=== PATIENT | female | born 1995 | race Caucasian/White ===

== ENCOUNTER 2024-01-16 16:59 | Emergency (ER) | payer OTHER, SELFPAY ==
[2024-01-16 17:07] VITALS: BP 136/95; PULSE 99; RESP 16; TEMP 37.2; O2SAT 96; BMI 26.6
--- NOTE | 2024-01-16 17:25 | ED.GENADULT ---
HPI - General Adult General Chief complaint: Vaginal Bleeding Stated complaint: Possible ectopic Time Seen by Provider: 01/16/24 17:00 Source: patient Mode of arrival: ambulatory Limitations: no limitations History of Present Illness HPI narrative: 28-year-old female presenting today with right lower quadrant cramping, positive test. Patient had a positive test approximately 2 weeks ago and 3 days after her positive test, she started having vaginal bleeding the lasted 2 weeks. She then developed right lower quadrant abdominal and pelvic pain. She was following in the clinic with , hCG levels were going down, however then on the hCG levels went up. Patient had an ultrasound done earlier today which showed no intrauterine gestational sac. And her hCG levels again went up 46. Because of this she was sent here for further evaluation by OBGYN. Patient denies any upper abdominal pain, bleeding stopped about 3 days ago. She denies vomiting but does feel very nauseated with decreased appetite. States that she has had 1 episode of diarrhea today. She denies any urinary symptoms such as increased frequency, urgency or dysuria. No fevers or chills. Related Data Home Medications ?Medication ?Instructions ?Recorded ?Confirmed alprazolam 0.5 mg tablet mg PO 12/11/22 12/11/22 hydroxychloroquine 200 mg tablet 200 mg PO BID 12/11/22 12/11/22 infliximab-abda 100 mg intravenous IV 12/11/22 12/11/22 solution (Renflexis) metformin 500 mg tablet,extended 2,000 mg PO DAILY 12/11/22 01/16/24 release 24 hr sertraline 100 mg tablet 100 mg PO DAILY 12/11/22 01/16/24 Previous Rx's ?Medication ?Instructions ?Recorded doxycycline hyclate 100 mg tablet 100 mg PO BID #14 tabs 12/11/22 prednisone 20 mg tablet 40 mg (2 x 20 mg) PO QDAY #10 tabs 12/11/22 Allergies Allergy/AdvReac Type Severity Reaction Status Date / Time amoxicillin Allergy Mild Verified 12/11/22 13:11 Penicillins Allergy Mild Rash Verified 12/11/22 13:11 Review of Systems Status of ROS: Reports: 10 or more systems reviewed and unremarkable except as noted in History and below [facility] Medical History Viral illness ?B34.9 - Viral infection, unspecified (ICD-10) Sore throat ?J02.9 - Acute pharyngitis, unspecified (ICD-10) Social History Smoking Status: Never smoker Exam Narrative: Exam Narrative: Well-nourished well-developed patient in no acute distress. Alert and oriented. Answers questions appropriately. Mood and affect are appropriate. Thoughts are goal oriented and rational. No tangential or magical thinking noted. Patient speaks in full sentences without needing to catch her breath. HEENT: Normocephalic atraumatic. Pupils are equally round reactive to light. Extraocular muscles are intact. Conjunctivae are moist without any icterus noted. Moist mucous membranes. Cardiovascular: Heart is regular rate and rhythm S1 and S2 are present without any murmurs. Lungs: Clear to auscultation bilaterally no wheezes rhonchi or rales are appreciated. Abdomen: Soft and nondistended with normal bowel sounds. Mild right lower quadrant/pelvic tenderness. No pain at McBurney's point. No periumbilical tenderness. No guarding, no rebound tenderness. Extremities: Bilateral lower extremities are without edema. Normal DP and PT pulses. Skin: Well perfused without any obvious rashes. Const: Vital Signs, click to edit/add: Vital Signs - 24 hr 01/16/24 17:07 Temperature 99.0 F Pulse Rate [Pulse Oximeter] 99 Respiratory Rate 16 Blood Pressure [Ri ght Upper Arm] 136/95 H Pulse Oximetry 96 Oxygen Delivery Me thod Room Air Course Course ED Course: Dr. Nielsen came down to evaluate the patient, she recommended blood work in order for the patient to be treated with methotrexate. CBC, chemistries, LFTs obtain: All unremarkable. Quantitative hCG was 41. Patient given a dose of IM methotrexate per the recommendation of . Patient will be discharged home, follow-up scheduled per OBGYN. Vital Signs Vital signs: Initial Vital Signs Temperature 99.0 F 01/16/24 17:07 Temperature Source Temporal Artery Scan 01/16/24 17:07 Pulse Rate 99 01/16/24 17:07 Respiratory Rate 16 01/16/24 17:07 Blood Pressure 136/95 H 01/16/24 17:07 Blood Pressure Mean 108 H 01/16/24 17:07 Pulse Oximetry 96 01/16/24 17:07 Oxygen Delivery Method Room Air 01/16/24 17:07 Vital Signs Temperature 99.0 F 01/16/24 17:07 Pulse Rate 99 01/16/24 17:07 Respiratory Rate 16 01/16/24 17:07 Blood Pressure 136/95 H 01/16/24 17:07 Pulse Oximetry 96 01/16/24 17:07 Oxygen Delivery Method Room Air 01/16/24 17:07 Temperature 99.0 F 01/16/24 17:07 Pulse Rate 99 01/16/24 17:07 Respiratory Rate 16 01/16/24 17:07 Blood Pressure 136/95 H 01/16/24 17:07 Pulse Oximetry 96 01/16/24 17:07 Oxygen Delivery Method Room Air 01/16/24 17:07 Medical Decision Making MDM Narrative Medical decision making narrative: 28-year-old female with recent , vaginal bleeding and right lower quadrant pain, hCG levels not appropriate for a normal . Concern for abnormal versus ectopic . Treatment per above. Medical Records Medical records reviewed: Yes I reviewed the patient's medical records Medical records narrative: HCG levels and ultrasound done at the [facility] earlier today were reviewed. Lab Data Lab results reviewed: Yes I reviewed the patient's lab results Labs: Lab Results 01/16/24 01/16/24 Range/Units 17:30 17:37 WBC 7.03 (4.50-11.00) K/uL RBC 4.45 (4.00-5.20) m/uL Hgb 13.9 (12.0-16.0) gm/dL Hct 40.8 (33.0-51.0) % MCV 92 (80-100) fL MCH 31 (26-34) pg MCHC 34 (32-36) gm/dL RDW Coeff of Mimi 11.8 (11.5-15.5) % Plt Count 197 (140-440) K/uL Neut % (Auto) 50.7 (42.0-72.0) % Lymph % (Auto) 38.3 (20-44) % [place] % (Auto) 8.0 (0.0-11.0) % Eos % (Auto) 2.6 (0.0-7.0) % Baso % (Auto) 0.4 (0.0-3.0) % Neut # (Auto) 3.57 (1.7-7.0) K/uL Lymph # (Auto) 2.69 (0.90-2.90) K/uL [place] # (Auto) 0.60 (0.00-0.90) K/UL Eos # (Auto) 0.18 (0.00-0.50) K/uL Baso # (Auto) 0.03 (0.00-0.30) K/uL Abs Immat Gran (auto) 0.00 (0.00-0.30) K/uL Imm/Tot Granulo (auto) 0.0 % Sodium 137 (135-149) mmol/L Potassium 4.4 (3.6-5.1) mmol/L Chloride 103 (96-114) mmol/L Carbon Dioxide 26 (20-32) mmol/L Anion Gap 8 (7-15) mEq/L BUN 9 (5-24) mg/dL Creatinine 0.6 (0.5-1.5) mg/dL Estimated Creat Clear 119.47 Estimated GFR 125 ml/min Glucose 90 (60-115) mg/dL Calcium 9.9 (8.4-10.6) mg/dL Total Bilirubin 0.6 (0.1-1.5) mg/dL Direct Bilirubin 0.3 (0.0-0.5) mg/dL AST 23 (12-35) U/L ALT 22 (4-35) U/L Alkaline Phosphatase 38 L (40-150) U/L Total Protein 7.7 (6.0-8.3) g/dL Albumin 5.0 (3.3-5.0) g/dL HCG, Quant 41.05 mIU/mL Urine Color Yellow (Yellow) Urine Appearance Clear (Clear) Urine pH 6.0 (5.0-8.5) Ur Specific [place] 1.010 (1.000-1.030) Urine Protein Negative (Negative) Urine Glucose (UA) Negative (Negative) Urine Ketones Negative (Negative) Urine Blood Negative (Negative) Urine Nitrite Negative (Negative) Urine Bilirubin Negative (Negative) Urine Urobilinogen 0.2 (0.2-1.0) Ur Leukocyte Esterase Negative (Negative) Urine RBC 0-2 (0-2) Urine WBC 0-2 (0-5) Ur Squamous Epith Cells None (None-Few) Urine Bacteria None (None) Discharge Plan Discharge Clinical Impression: Vaginal bleeding, Ectopic without intrauterine Patient Disposition: Home, Self-Care Condition: Stable Additional Instructions: Follow-up per optical effects layout person recommendations. Prescriptions: No Action sertraline 100 mg tablet 100 mg PO DAILY Renflexis 100 mg recon soln IV hydroxychloroquine 200 mg tablet 200 mg PO BID metformin 500 mg tablet extended release 24 hr 2,000 mg PO DAILY alprazolam 0.5 mg tablet PO doxycycline hyclate 100 mg tablet 100 mg PO BID Qty: 14 0RF prednisone 20 mg tablet 40 mg PO QDAY Qty: 10 0RF Follow Up/Referrals: Madhavi Alejandra PAMarlen [Primary Care Provider] - Stand Alone Forms: [email or web address] Info Instructions
[2024-01-16 17:44] LABS: Basophils Absolute Auto 0.03 K/uL (0.00-0.30); Basophils Percent Auto 0.4 % (0.0-3.0); Eosinophils Absolute Auto 0.18 K/uL (0.00-0.50); Eosinophils Percent Auto 2.6 % (0.0-7.0); Hematocrit 40.8 % (33.0-51.0); Hemoglobin* 13.9 gm/dL (12.0-16.0); Lymphocytes Absolute Auto 2.69 K/uL (0.90-2.90); Lymphocytes Percent Auto 38.3 % (20-44); Mean Corpuscular HGB Conc 34 gm/dL (32-36); Mean Corpuscular Hemoglobin 31 pg (26-34); Mean Corpuscular Volume 92 fL (80-100); Neutrophils Absolute Auto 3.57 K/uL (1.7-7.0); Neutrophils Percent Auto 50.7 % (42.0-72.0); Platelet Count* 197 K/uL (140-440); RDW Coefficient of Variation % 11.8 % (11.5-15.5); Red Blood Count 4.45 m/uL (4.00-5.20); White Blood Count* 7.03 K/uL (4.50-11.00)
[2024-01-16 17:45] LABS: Slide Review Reflex No
[2024-01-16 17:58] LABS: Appearance Urine Clear (Clear); Bilirubin Urine Negative (Negative); Blood Urine Negative (Negative); Color Urine Yellow (Yellow); Glucose Urine Negative (Negative); Ketones Urine Negative (Negative); Leukocyte Esterase Urine Negative (Negative); Nitrite Urine Negative (Negative); Protein Urine Negative (Negative); Urobilinogen Urine 0.2 (0.2-1.0)
[2024-01-16 18:02] LABS: Chloride* 103 mmol/L (96-114); Potassium* 4.4 mmol/L (3.6-5.1); Sodium* 137 mmol/L (135-149)
[2024-01-16 18:04] LABS: Anion Gap 8 mEq/L (7-15); Carbon Dioxide* 26 mmol/L (20-32); Creatinine* 0.6 mg/dL (0.5-1.5); Est. Creatinine Clearance* 119.47; Estimated Glomerular Filt Rate 125 ml/min
[2024-01-16 18:05] LABS: Alanine Aminotransferase* 22 U/L (4-35); Alkaline Phosphatase* 38 U/L (40-150); Aspartate Amino Transferase* 23 U/L (12-35); Bilirubin Direct* 0.3 mg/dL (0.0-0.5); Bilirubin Total* 0.6 mg/dL (0.1-1.5); Blood Urea Nitrogen* 9 mg/dL (5-24); Calcium* 9.9 mg/dL (8.4-10.6); Glucose* 90 mg/dL (60-115); Total Protein* 7.7 g/dL (6.0-8.3)
[2024-01-16 18:11] LABS: RBC Urine 0-2 (0-2); WBC Urine 0-2 (0-5)
[2024-01-16 18:33] LABS: HCG Quantitative* 41.05 mIU/mL
--- NOTE | 2024-01-16 18:36 | P.GYNCN_ITS ---
SHORT PIECE HANDLER - CN: HPI Data of Consult Date Seen: 01/16/24 Patient: Charlie Patient Consult date: 01/16/24 Requesting Physician: Dr. Fernandez. Primary Care Provider: Dr. Angelica Coffman. Consult Narrative Reason for consult: ectopic Narrative: Amparo Correa is a 28 year old female, 2 para 1, who presents to the emergency department for evaluation of cramping abdominal pain and positive test, with laboratory evaluations and ultrasounds concerning for either ectopic or failed intrauterine . The patient had a positive test approximately two weeks ago. About three days later, she started bleeding vaginally. The vaginal bleeding lasted two weeks. She then developed some right lower quadrant abdominal and pelvic pain. She was evaluated at the [facility] by Dr. Coffman. Her evaluation included the following quantitative beta HCG levels: * 22 (12/29/2023) * 7 (12/31/2023) * 40 01/13/2024) * 46 (01/15/2024) She had a pelvic ultrasound on 12/29/2023 that showed no evidence intrauterine nor findings consistent with ectopic gestation. She had another pelvic ultrasound today, which demonstrated again, no evidence of intrauterine . Endometrial lining was 8 mm. Ovaries were normal in appearance. There was small-moderate fluid in the posterior cul-de-sac. Currently, the patient complains of right upper quadrant cramping discomfort with some radiation into her right shoulder. She had some menstrual-like cramping when that the vaginal probe was used for the ultrasound earlier today. She has not had any bleeding for three days. She describes feeling anxious, and has some nausea and decreased appetite. She denies urinary symptoms. She has had no fevers or chills, shortness of breath, or constipation. Loose stool earlier today. cc:: CC: [facility] Medical History (Updated 01/16/24 @ 18:56 by Fallon Nielsen MD) Anxiety and depression ?F41.9 - Anxiety disorder, unspecified (ICD-10) ?F32.A - Depression, unspecified (ICD-10) Viral illness ?B34.9 - Viral infection, unspecified (ICD-10) Sore throat ?J02.9 - Acute pharyngitis, unspecified (ICD-10) Surgical History (Updated 01/16/24 @ 18:56 by Fallon Nielsen MD) History of exploratory laparotomy ?Z98.890 - Other specified postprocedural states (ICD-10) History of section (08/17/20) ?Z98.891 - History of uterine scar from previous surgery (ICD-10) Social History (Updated 01/16/24 @ 18:56 by Fallon Nielsen MD) Smoking Status: Never smoker Are you now , , , , never or living with a partner: Social isolation score (0-1 are the most socially isolated patients): 1 Meds Home Medications and Allergies Home Medications ?Medication ?Instructions ?Recorded ?Confirmed ?Type alprazolam 0.5 mg tablet mg PO 12/11/22 12/11/22 History hydroxychloroquine 200 mg tablet 200 mg PO BID 12/11/22 12/11/22 History infliximab-abda 100 mg intravenous IV 12/11/22 12/11/22 History solution (Renflexis) metformin 500 mg tablet,extended 2,000 mg PO DAILY 12/11/22 01/16/24 History release 24 hr sertraline 100 mg tablet 100 mg PO DAILY 12/11/22 01/16/24 History Allergies Allergy/AdvReac Type Severity Reaction Status Date / Time amoxicillin Allergy Mild Verified 12/11/22 13:11 Penicillins Allergy Mild Rash Verified 12/11/22 13:11 SHORT PIECE HANDLER - Exam Physical Exam: Vital signs: Temp Pulse Resp BP Pulse Ox O2 Del Method 99.0 F 99 16 136/95 H 96 Room Air 01/16/24 17:07 01/16/24 17:07 01/16/24 17:07 01/16/24 17:07 01/16/24 17:07 01/16/24 17:07 Constitutional: Constitutional: no acute distress and cooperative Routine HEENT Exam: Head: Present normal inspection Eye: Present normal appearance Routine Respiratory Exam: Respiratory: Absent respiratory distress Routine Abdominal Exam: Abdominal: Present soft and tenderness (Right upper quadrant) Routine Exam: External: Present normal external exam Detailed Pelvic Exam: Cervix: Absent tenderness Uterus: Present tenderness (Very mildly tender uterus and right adnexa, no adnexal masses palpable) SHORT PIECE HANDLER - Results Labs Labs: Short CBC 01/16/24 Range/Units 17:37 WBC 7.03 (4.50-11.00) K/uL Hgb 13.9 (12.0-16.0) gm/dL Hct 40.8 (33.0-51.0) % Plt Count 197 (140-440) K/uL BMP 01/16/24 17:37 Sodium 137 Potassium 4.4 Chloride 103 Carbon Dioxide 26 BUN 9 Creatinine 0.6 Glucose 90 Calcium 9.9 Liver Function 01/16/24 Range/Units 17:37 Total Bilirubin 0.6 (0.1-1.5) mg/dL Direct Bilirubin 0.3 (0.0-0.5) mg/dL AST 23 (12-35) U/L ALT 22 (4-35) U/L Alkaline Phosphatase 38 L (40-150) U/L Albumin 5.0 (3.3-5.0) g/dL Urine 01/16/24 Range/Units 17:30 Urine Color Yellow (Yellow) Urine Appearance Clear (Clear) Urine pH 6.0 (5.0-8.5) Ur Specific [place] 1.010 (1.000-1.030) Urine Protein Negative (Negative) Urine Glucose (UA) Negative (Negative) Assessment and Plan Assessment and plan (1) Ectopic : Status: Acute Plan The patient and I discussed the situation. She either has a failed intrauterine or an ectopic . It is very difficult to know with certainty the location of the because it is so early in the course of the and her HCG levels are very low, beneath the discriminatory zone for imaging. Because the HCG levels are not rising appropriately, it is certain that this is not a normal that would result in a live . Certainly, because of the possibility that the is ectopic, treatment is advised. The most conservative fertility-conserving treatment would be medical treatment with methotrexate. We reviewed the relative risks and benefits of the medication which can be used for failed intrauterine or ectopic pregnancies. She is familiar with the medication, as she has used in the past for her rheumatoid arthritis at a higher dosage. Labs were are ready checked today, including CBC, BUN, creatinine, ALT, and AST as well as another beta HCG. Methotrexate will be administered at 50 milligrams/meter squared, which calculates to be 90 mg IM. The patient should have been HCG level [facility], and then should have additional labs drawn on January 22, which would include CBC, BUN, creatinine, ALT, AST, and HCG. She should see a women's [facility] stone splitter on January 22 for follow-up, to make certain that she does not need a second dose. Because the is so early, I think the necessity of a second dose would be extremely unlikely. She was cautioned that some women experience exacerbation of the pain symptoms and/or vaginal bleeding for a couple of days after methotrexate admin istration. Certainly, if she should develop severe pain or heavy vaginal bleeding, she should seek medical attention. The plan had previously been discussed with Dr. Coffman. Total Time Spent Total Time Spent: 45 minutes.
[2024-01-16 19:07] VITALS: BP 107/77; PULSE 63; RESP 20; O2SAT 96
[2024-01-16 20:16] VITALS: BP 119/84; PULSE 76; RESP 18; O2SAT 97
--- NOTE | 2024-01-16 20:22 | ED.NURSE ---
Pt received methotrexate patient education binder. and pt had no further questions. Understand lab follow up.
[2024-01-16] MEDS: METHOTREXATE 25 MG/ML inj 90 MG IM (20:25)
[2024-01-16 20:47] VITALS: BP 112/85; PULSE 76; RESP 20; O2SAT 96
== END 2024-01-16 20:48 | disposition home or self-care (01) ==
PROVIDERS: Emergency Provider Family Medicine; PCP Physician Assistant Medical
DX: O00.90 Unspecified ectopic pregnancy without intrauterine pregnancy (principal)
CPT/HCPCS: 36415; 80048; 80076; 81001; 84702; 85025; 86900; 86901; 87086; 96372; 99284; J9260

== ENCOUNTER 2024-01-20 09:25 | Outpatient (CLI) | payer OTHER, SELFPAY | END 2024-01-20 09:26 | disposition home or self-care (01) | LOC: NFLDREF 01-22 11:43 | PROVIDERS: PCP Physician Assistant Medical; Referring Provider Physician Assistant Medical; Visit Provider Obstetrics & Gynecology | DX: O00.90 Unspecified ectopic pregnancy without intrauterine pregnancy (principal) | CPT/HCPCS: 84702 ==

== ENCOUNTER 2024-01-23 08:37 | Outpatient (CLI) | payer OTHER, SELFPAY | END 2024-01-23 08:38 | disposition home or self-care (01) | LOC: NFLDREF 01-25 07:47 | PROVIDERS: PCP Physician Assistant Medical; Referring Provider Physician Assistant Medical; Visit Provider Obstetrics & Gynecology | DX: O00.90 Unspecified ectopic pregnancy without intrauterine pregnancy (principal) | CPT/HCPCS: 82565; 84450; 84460; 84520; 84702 ==

== ENCOUNTER 2024-01-30 13:00 | Outpatient (CLI) | payer OTHER, SELFPAY | END 2024-01-30 13:01 | disposition home or self-care (01) | LOC: NFLDREF 01-31 06:04 | PROVIDERS: PCP Physician Assistant Medical; Referring Provider Physician Assistant Medical; Visit Provider Obstetrics & Gynecology | DX: O00.90 Unspecified ectopic pregnancy without intrauterine pregnancy (principal) | CPT/HCPCS: 84450; 84702 ==

== ENCOUNTER 2024-02-05 16:29 | Emergency (ER) | payer OTHER, SELFPAY ==
[2024-02-05 16:32] VITALS: BP 121/78; PULSE 68; RESP 18; TEMP 36.8; O2SAT 98; BMI 26.6
--- NOTE | 2024-02-05 16:38 | US_ITS ---
Patient: BRIDGER PORTILLO Facility:?[facility] RIS Patient ID:?[id number] Site Patient ID:?[id number]. Site :?[id number] Study:?US-Pelvis PELVIS TV-02/05/2024 5:21:46 PM Ordering Physician:Lynn Gonzalez Final Report: Indication: Left lower quadrant pain Ectopic status post methotrexate. Technique: Real-time sonographic images of the pelvis were obtained transvaginally utilizing grayscale, color, and Doppler imaging. Comparison: None. Findings: Uterus: Appearance: Small amount of fluid is seen in the prior location of the section scar. Position: Anteverted. Size: 7.8 x 2.9 x 4.2 cm. Endometrial stripe: 7 mm. Right ovary: Size: 2.8 x 2.6 x 2.7 cm. Appearance: Normal morphology. No masses. Preserved blood flow. Left ovary: Size: 2.4 x 1.6 x 1.9 cm. Appearance: Normal morphology. No masses. Preserved blood flow. Free fluid: None. Impression: 1. Small amount of cystic fluid is seen in the prior location of the section scar. 2. Normal appearance of the bilateral ovaries. Dictated by Nehemias Lockett MD @ 02/05/2024 6:08:40 PM Signed by:?Nehemias Lockett MD @02/05/2024 6:08:40 PM (Electronic Signature)
--- NOTE | 2024-02-05 16:51 | ED.GENADULT ---
HPI - General Adult General Date Seen: 02/05/24 Chief complaint: Abdominal Pain Stated complaint: Abdominal pain-poss ectopic preg Time Seen by Provider: 02/05/24 16:37 History of Present Illness HPI narrative: This is a pleasant 28-year-old female with a history of rheumatoid arthritis, previous , and recent (presumed ectopic, but unknown location). LMP was November 26. After missing her menstrual cycle in December, She was diagnosed with a (based on home test) during the 2nd week of December and a couple of days after her positive test she started having vaginal bleeding. She was followed the [facility] clinic. Initial HCG was about 40 or 50 and then was falling down for a week or two and then her hCG level began to rise again. She was referred to the ER for evaluation and OB consult on January 15. In the ER on January 15 her hCG was 41. Hemoglobin was 13.9. She was seen by safety deposit clerk and treated with methotrexate. She had outpatient follow-up HCGs on 01/19 when it was 24 and 01/22 when it was 14. She had a follow-up in clinic on the and other than having GI symptoms from the methotrexate, exam was reassuring. Follow-up ECG on 01/29 was less than 2. She reports that she had about a week of GI symptoms from it the methotrexate, in particular diarrhea but also nausea and vomiting. She had 3 days of very heavy vaginal bleeding from roughly December 25 to . Since then she has not had any bleeding, discharge. She just has not been feeling very well. She has been generally weak and a little bit short of breath for the past couple of weeks. No other symptoms. No fever. No cough. No sore throat. No urinary symptoms. No ongoing diarrhea. Since Friday, 2 days ago , she has been having a lot of pressure and cramping in her lower pelvis and back. Her pain is reminiscent of when her water broke with her 1st delivery. She is having some light pink vaginal discharge (nothing malodorous or purulent) but no vaginal bleeding. No fever. She called her OB doctor and was told to come here to the ER. Related Data Home Medications ?Medication ?Instructions ?Recorded ?Confirmed alprazolam 0.5 mg tablet mg PO 12/11/22 01/23/24 hydroxychloroquine 200 mg tablet 200 mg PO BID 12/11/22 01/23/24 infliximab-abda 100 mg intravenous IV 12/11/22 01/23/24 solution (Renflexis) metformin 500 mg tablet,extended 2,000 mg PO DAILY 12/11/22 01/23/24 release 24 hr sertraline 100 mg tablet 100 mg PO DAILY 12/11/22 01/23/24 acetaminophen 500 mg tablet 500 mg PO Q6H PRN 01/23/24 01/23/24 (Tylenol Extra Strength) Allergies Allergy/AdvReac Type Severity Reaction Status Date / Time amoxicillin Allergy Mild Verified 02/05/24 20:54 Penicillins Allergy Mild Rash Verified 02/05/24 20:54 [facility] Medical History (Updated 02/05/24 @ 23:24 by Carlos Page MD) Anxiety and depression ?F41.9 - Anxiety disorder, unspecified (ICD-10) ?F32.A - Depression, unspecified (ICD-10) Viral illness ?B34.9 - Viral infection, unspecified (ICD-10) Sore throat ?J02.9 - Acute pharyngitis, unspecified (ICD-10) Surgical History (Updated 01/16/24 @ 18:56 by Fallon Nielsen MD) History of exploratory laparotomy ?Z98.890 - Other specified postprocedural states (ICD-10) History of section (08/17/20) ?Z98.891 - History of uterine scar from previous surgery (ICD-10) Social History (Updated 01/16/24 @ 18:56 by Fallon Nielsen MD) Smoking Status: Never smoker Are you now , , , , never or living with a partner: Social isolation score (0-1 are the most socially isolated patients): 1 Exam Narrative: Exam Narrative: Constitutional: Appears well-developed and well-nourished. Alert. Conversant. Non toxic. HENT: Head: Atraumatic. Nose: Nose normal. Mouth/Throat: Oral mucosa is clear and moist. no trismus. Pharynx normal Eyes: Conjunctivae normal. EOM normal. Pupils equal, round, and reactive to light. No scleral icterus. Neck: Normal range of motion. Neck supple. No tracheal deviation present. Cardiovascular: Normal rate, regular rhythm. No gallop. No friction rub. No murmur heard. Symmetric radial artery pulses Pulmonary/Chest: Effort normal. No stridor. No respiratory distress. No wheezes. No rales. No rhonchi . No tenderness. Abdominal: Soft. Bowel sounds normal. No distension. No mass. Diffusely tenderness. Maximum tenderness in lower abdomen would also quite tender in the upper abdomen. No CVA tenderness. No rebound. No guarding. Musculoskeletal: RUE: Normal range of motion. No tenderness. No deformity LUE: Normal range of motion. No tenderness. No deformity RLE: Normal range of motion. No edema. No tenderness. No deformity LLE: Normal range of motion. No edema. No tenderness. No deformity Neurological: Alert and oriented to person, place, and time. Normal strength. CN II-VII intact. No sensory deficit. GCS eye subscore is 4. GCS verbal subscore is 5. GCS motor subscore is 6. Normal coordination Skin: Skin looks pale from the doorway, but she actually has pink, well perfused palms and tongue. Brisk cap refill. I think she just has very fair skin. Skin is warm and dry. No rash noted. No pallor. Normal capillary refill. Psychiatric: Normal mood. Normal affect. Const: Vital Signs, click to edit/add: Vital Signs - 24 hr 02/05/24 16:32 02/05/24 21:07 Temperature 98.3 F Pulse Rate [Right Pulse Oximeter] 68 61 Respiratory Rate 18 16 Blood Pressure [Ri ght Upper Arm] 121/78 108/59 L Pulse Oximetry 98 98 Oxygen Delivery Me thod Room Air Room Air Course Course ED Course: Recheck-ultrasound reassuring. Patient still has fairly diffuse tenderness. Will proceed with workup for non gynecologic causes of abdominal pain including labs and CT. Reevaluation(s) Reevaluation #1: Recheck-CT shows possible right adnexal lesion. Discussed with safety deposit clerk on-call. Since the patient is not and there was normal blood flow, no immediate concern. Follow-up outpatient. Vital Signs Vital signs: Initial Vital Signs Temperature 98.3 F 02/05/24 16:32 Temperature Source Temporal Artery Scan 02/05/24 16:32 Pulse Rate 68 02/05/24 16:32 Pulse Rhythm Regular 02/05/24 16:32 Pulse Strength 3+ Normal 02/05/24 16:32 Respiratory Rate 18 02/05/24 16:32 Blood Pressure 121/78 02/05/24 16:32 Blood Pressure Mean 92 02/05/24 16:32 Blood Pressure Position Sitting 02/05/24 16:32 Pulse Oximetry 98 02/05/24 16:32 Oxygen Delivery Method Room Air 02/05/24 16:32 Vital Signs Temperature 98.3 F 02/05/24 16:32 Pulse Rate 68 02/05/24 16:32 Respiratory Rate 18 02/05/24 16:32 Blood Pressure 121/78 02/05/24 16:32 Pulse Oximetry 98 02/05/24 16:32 Oxygen Delivery Method Room Air 02/05/24 16:32 Temperature 98.3 F 02/05/24 16:32 Pulse Rate 61 02/05/24 21:07 Respiratory Rate 16 02/05/24 21:07 Blood Pressure 108/59 L 02/05/24 21:07 Pulse Oximetry 98 02/05/24 21:07 Oxygen Delivery Method Room Air 02/05/24 21:07 Medical Decision Making MDM Narrative Medical decision making narrative: Presented to the Emergency Department with abdominal pain worse in her bilateral lower quadrants but also affecting her upper abdomen that is been ongoing for the past couple of days. She did have a recent that was presumed to be ectopic and treated with methotrexate (about 3 weeks ago). Follow-up HCG levels have gone to an undetectable level so it has been presumed that her ectopic had resolved. However with recurrent pain concern would be for possible ongoing ectopic or other complication. Repeat ECG remains undetectable. Pelvic ultrasound shows structurally normal ovaries and adnexa and no free fluid. The differential diagnosis of abdominal pain also includes none gynecologic causes such as: Appendicitis, Bowel Obstruction, Cholecystitis, Diverticulitis, Pancreatitis, UTI, kidney stone, Enteritis/Colitis, amongst many other etiologies. Laboratory testing does not reveal a cause for the patient's pain. Ultrasound and CT Imaging is noted to be normal, save for a adnexal lesion next to her right ovary. Discussed this with OB and they feel it would not be related to the recent ectopic or require surgical exploration tonight.. The exact etiology of the abdominal pain is not clear at this time. No life threatening cause or need for emergent surgery or hospital admission is detected today. The patient was advised that if symptoms do not completely resolve within another 24 hours re-evaluation with primary care or return to the ED is indicated. The patient also understands that if they worsen, they should return to the ER right away. I discussed the uncertainty about the diagnosis and answered the patient's questions. Abdominal pain return precautions discussed. Instymeds prescriptions for [place] -10 tablets-along with opiate precautions provided. Lab Data Labs: Lab Results 02/05/24 02/05/24 02/05/24 Range/Units 17:19 19:00 20:10 WBC 5.40 (4.50-11.00) K/uL RBC 4.05 (4.00-5.20) m/uL Hgb 12.5 (12.0-16.0) gm/dL Hct 38.1 (33.0-51.0) % MCV 94 (80-100) fL MCH 31 (26-34) pg MCHC 33 (32-36) gm/dL RDW Coeff of Mimi 12.2 (11.5-15.5) % Plt Count 187 (140-440) K/uL Neut % (Auto) Not Reportable Lymph % (Auto) Not Reportable [place] % (Auto) Not Reportable Eos % (Auto) Not Reportable Baso % (Auto) Not Reportable Neut # (Auto) Not Reportable Lymph # (Auto) Not Reportable [place] # (Auto) Not Reportable Eos # (Auto) Not Reportable Baso # (Auto) Not Reportable Sodium 139 (135-149) mmol/L Potassium 4.0 (3.6-5.1) mmol/L Chloride 108 (96-114) mmol/L Carbon Dioxide 24 (20-32) mmol/L Anion Gap 7 (7-15) mEq/L BUN 7 (5-24) mg/dL Creatinine 0.5 (0.5-1.5) mg/dL Estimated Creat Clear 143.36 Estimated GFR 130 ml/min Glucose 89 (60-115) mg/dL Calcium 8.8 (8.4-10.6) mg/dL Total Bilirubin 0.3 (0.1-1.5) mg/dL AST 26 (12-35) U/L ALT 23 (4-35) U/L Alkaline Phosphatase 37 L (40-150) U/L Total Protein 7.0 (6.0-8.3) g/dL Albumin 4.6 (3.3-5.0) g/dL Lipase 50 (23-300) U/L HCG, Quant < 2.39 mIU/mL Urine Color Light yellow (Yellow) Urine Appearance Clear (Clear) Urine pH 7.0 (5.0-8.5) Ur Specific [place] 1.010 (1.000-1.030) Urine Protein Negative (Negative) Urine Glucose (UA) Negative (Negative) Urine Ketones Negative (Negative) Urine Blood Negative (Negative) Urine Nitrite Negative (Negative) Urine Bilirubin Negative (Negative) Urine Urobilinogen 0.2 (0.2-1.0) Ur Leukocyte Esterase Negative (Negative) Urine RBC 0-2 (0-2) Urine WBC 0-2 (0-5) Ur Squamous Epith Cells None (None-Few) Urine Bacteria Few A (None) Blood Type A Negative Antibody Screen POSITIVE 02/05/24 Range/Units 20:10 WBC (4.50-11.00) K/uL RBC (4.00-5.20) m/uL Hgb (12.0-16.0) gm/dL Hct (33.0-51.0) % MCV (80-100) fL MCH (26-34) pg MCHC (32-36) gm/dL RDW Coeff of Mimi (11.5-15.5) % Plt Count (140-440) K/uL Neut % (Auto) Lymph % (Auto) [place] % (Auto) Eos % (Auto) Baso % (Auto) Neut # (Auto) Lymph # (Auto) [place] # (Auto) Eos # (Auto) Baso # (Auto) Sodium (135-149) mmol/L Potassium (3.6-5.1) mmol/L Chloride (96-114) mmol/L Carbon Dioxide (20-32) mmol/L Anion Gap (7-15) mEq/L BUN (5-24) mg/dL Creatinine (0.5-1.5) mg/dL Estimated Creat Clear Estimated GFR ml/min Glucose (60-115) mg/dL Calcium (8.4-10.6) mg/dL Total Bilirubin (0.1-1.5) mg/dL AST (12-35) U/L ALT (4-35) U/L Alkaline Phosphatase (40-150) U/L Total Protein (6.0-8.3) g/dL Albumin (3.3-5.0) g/dL Lipase Cancelled (23-300) U/L HCG, Quant mIU/mL Urine Color (Yellow) Urine Appearance (Clear) Urine pH (5.0-8.5) Ur Specific [place] (1.000-1.030) Urine Protein (Negative) Urine Glucose (UA) (Negative) Urine Ketones (Negative) Urine Blood (Negative) Urine Nitrite (Negative) Urine Bilirubin (Negative) Urine Urobilinogen (0.2-1.0) Ur Leukocyte Esterase (Negative) Urine RBC (0-2) Urine WBC (0-5) Ur Squamous Epith Cells (None-Few) Urine Bacteria (None) Blood Type Antibody Screen Imaging Data US pelvic TV: Attestation: I have reviewed the pertinent imaging results. Radiologist's impression: Impression: 1. Small amount of cystic fluid is seen in the prior location of the section scar. 2. Normal appearance of the bilateral ovaries. Discharge Plan Discharge Clinical Impression: Abdominal pain, Ovarian cyst Patient Disposition: Home, Self-Care Condition: Stable Instructions: Ovarian Cyst (ED), Abdominal Pain (ED) Additional Instructions: As we discussed, please come back to the ER right away if you have any worsening symptoms such as worsening pain, fever, worsening vaginal bleeding or any vaginal discharge, or if you have any problems. Use caution with [place] because it can cause drowsiness, dizziness, and can be addictive. If your pain is not resolved within the next 24-36 hours, please recheck with your doctor or come back to the ER. You do have a small bubble of fluid next your right ovary which is probably an ovarian cyst. Please arrange a follow-up ultrasound with her doctor in about 1 month. Prescriptions: No Action acetaminophen [Tylenol Extra Strength] 500 mg tablet 500 mg PO Q6H PRN sertraline 100 mg tablet 100 mg PO DAILY Renflexis 100 mg recon soln IV hydroxychloroquine 200 mg tablet 200 mg PO BID metformin 500 mg tablet extended release 24 hr 2,000 mg PO DAILY alprazolam 0.5 mg tablet PO Follow Up/Referrals: Madhavi Alejandra PA-C [Primary Care Provider] - Stand Alone Forms: [employer] Info Instructions
[2024-02-05 17:27] LABS: Hematocrit 38.1 % (33.0-51.0); Hemoglobin* 12.5 gm/dL (12.0-16.0); Mean Corpuscular HGB Conc 33 gm/dL (32-36); Mean Corpuscular Hemoglobin 31 pg (26-34); Mean Corpuscular Volume 94 fL (80-100); Platelet Count* 187 K/uL (140-440); RDW Coefficient of Variation % 12.2 % (11.5-15.5); Red Blood Count 4.05 m/uL (4.00-5.20)
[2024-02-05 17:28] LABS: Slide Review Reflex No
--- NOTE | 2024-02-05 19:55 | CT_ITS ---
Patient: BRIDGER PORTILLO Facility:?[facility] Patient ID:?[id number] Site Patient ID:?[id number]. Site :?[id number] Study:?CT-Abdomen/Pelvis 76CC ISOVUE 370-02/05/2024 8:53:22 PM Ordering Physician:?DR. ALONSO Final Report: Indication: Abdominal pain, possible ectopic Technique: CT through the abdomen and pelvis following 76 mL Isovue 370 IV contrast Comparison: None Findings: Lower chest: No acute abnormality appreciated. Hepatobiliary: No significant parenchymal abnormality is appreciated. Spleen: Unremarkable. Pancreas: No acute abnormality appreciated. Adrenal glands: No acute abnormality appreciated. Kidneys: No significant parenchymal abnormality appreciated. No visualized calculi. No hydronephrosis. Bowel: No obstruction. No focal perienteric or pericolonic stranding is appreciated. The appendix is visualized and appears unremarkable. Vascular: No acute abnormality appreciated. Lymph nodes: No gross lymphadenopathy. Peritoneum: No free air. No free fluid. : Complex right adnexal/ovarian lesion measures 2.9 x 2.6 centimeters. This is not well evaluated by CT. Soft tissues: No acute abnormality appreciated. Bones: No acute fracture. No lytic or blastic lesion. Impression: Complex right adnexal/ovarian lesion. CT is not sensitive or specific for evaluation of ectopic . Ultrasound and steel pourer evaluation would be recommended if there is concern for ectopic . Please note that all CT scans at this facility use dose modulation, iterative reconstruction, and/or weight-based dosing when appropriate to reduce radiation dose to as low as reasonably achievable. Dictated by Graham Morris MD @ 02/05/2024 9:56:54 PM Signed by:?Graham Morris MD @02/05/2024 9:56:54 PM (Electronic Signature)
[2024-02-05 20:05] LABS: Appearance Urine Clear (Clear); Bilirubin Urine Negative (Negative); Blood Urine Negative (Negative); Color Urine Light yellow (Yellow); Glucose Urine Negative (Negative); Ketones Urine Negative (Negative); Leukocyte Esterase Urine Negative (Negative); Nitrite Urine Negative (Negative); Protein Urine Negative (Negative); Urobilinogen Urine 0.2 (0.2-1.0)
[2024-02-05 20:12] LABS: Bacteria Urine Few; RBC Urine 0-2 (0-2); WBC Urine 0-2 (0-5)
[2024-02-05 20:39] LABS: Albumin* 4.6 g/dL (3.3-5.0); Chloride* 108 mmol/L (96-114); Sodium* 139 mmol/L (135-149)
[2024-02-05 20:41] LABS: Bilirubin Total* 0.3 mg/dL (0.1-1.5); Creatinine* 0.5 mg/dL (0.5-1.5); Est. Creatinine Clearance* 143.36; Estimated Glomerular Filt Rate 130 ml/min
[2024-02-05 20:42] LABS: Alanine Aminotransferase* 23 U/L (4-35); Alkaline Phosphatase* 37 U/L (40-150); Anion Gap 7 mEq/L (7-15); Aspartate Amino Transferase* 26 U/L (12-35); Blood Urea Nitrogen* 7 mg/dL (5-24); Carbon Dioxide* 24 mmol/L (20-32); Glucose* 89 mg/dL (60-115); Lipase* 50 U/L (23-300)
[2024-02-05 20:43] LABS: Calcium* 8.8 mg/dL (8.4-10.6)
[2024-02-05 21:04] LABS: HCG Quantitative* < 2.39 mIU/mL
[2024-02-05 21:07] VITALS: BP 108/59; PULSE 61; RESP 16; O2SAT 98
== END 2024-02-05 23:32 | disposition home or self-care (01) ==
PROVIDERS: Emergency Provider Emergency Medicine; PCP Physician Assistant Medical
DX: R10.9 Unspecified abdominal pain (principal); N83.201 Unspecified ovarian cyst, right side
CPT/HCPCS: 36415; 74177; 76830; 80053; 81001; 83690; 84702; 85025; 86850; 86870; 86900; 86901; 86905; 86906; 87086; 93976; 99284; 99285; Q9967

== ENCOUNTER 2024-02-18 09:14 | Outpatient (CLI) | payer OTHER, SELFPAY | END 2024-02-18 09:15 | disposition home or self-care (01) | PROVIDERS: PCP Physician Assistant Medical; Visit Provider Obstetrics & Gynecology | DX: R10.9 Unspecified abdominal pain (principal) | CPT/HCPCS: 87086 ==

== ENCOUNTER 2024-02-20 14:21 | Inpatient (IN) | payer OTHER, SELFPAY ==
[2024-02-20 14:26] VITALS: BP 114/84; PULSE 94; RESP 16; TEMP 36.9; O2SAT 94; BMI 26.6
--- NOTE | 2024-02-20 14:44 | CRLHL7_ITS ---
For Patients: As a result of the Century Cures Act, medical imaging exams and procedure reports are released immediately into your electronic medical record. You may view this report before your referring provider. If you have questions, please contact your health care provider. Indication: WORSENING PELVIC PAIN WITH RECENT ECTOPIC, ENDOMETRITIS? Technique: Noncontrast CT of the abdomen and pelvis was obtained. Please note that all CT scans at this facility use dose modulation, iterative reconstruction, and/or weight-based dosing when appropriate to reduce radiation dose to as low as reasonably achievable. Comparison: 01/15/2018 Findings: Lower thorax: Normal. Liver and biliary tree: Normal noncontrast appearance. Gallbladder: Normal. Spleen: Normal noncontrast appearance. Pancreas: Normal noncontrast appearance. Adrenal glands: Normal noncontrast appearance. Kidneys and ureters: No hydronephrosis or obstructing renal calculi. Possible 2 millimeter nonobstructing left renal calculus (2/41). Gastrointestinal tract: Moderate stool burden. Normal appendix. No evidence of bowel obstruction. Peritoneal cavity: Normal. Bladder: Decompressed. Pelvic organs: Normal. Vasculature: Normal noncontrast appearance. Lymph nodes: Normal. Abdominal wall: Trace fat containing periumbilical hernia. Musculoskeletal: Normal. Impression: No acute intra-abdominal abnormality. Ultrasound may be of utility if there is concern for endometritis. Please note that all CT scans at this facility use dose modulation, iterative reconstruction, and/or weight-based dosing when appropriate to reduce radiation dose to as low as reasonably achievable. Dictated by Nehemias Lockett MD @ 02/20/2024 5:21:07 PM (Electronically Signed)
--- NOTE | 2024-02-20 14:44 | ED_ITS ---
HPI - Abdominal Pain General Time Seen by Provider: 14:44 <Carmen Vaughn MD - Last Filed: 02/20/24 16:17> Date Seen: 02/20/24 <Carmen Vaughn MD - Last Filed: 02/20/24 16:17> Chief Complaint: Abdominal Pain <Carmen Vaughn MD - Last Filed: 02/20/24 16:17> Stated Complaint: MD rec new CT for pelvic pain <Carmen Vaughn MD - Last Filed: 02/20/24 16:17> Time Seen by Provider: 02/20/24 14:25 <Carmen Vaughn MD - Last Filed: 02/20/24 16:17> Source: patient, RN notes reviewed and old records reviewed <Carmen Mesa MD - Last Filed: 02/20/24 16:17> Mode of arrival: ambulatory <Carmen Vaughn MD - Last Filed: 02/20/24 16:17> Limitations: no limitations <Carmen Vaughn MD - Last Filed: 02/20/24 16:17> History of Present Illness HPI narrative: This 28-year-old female is coming in with increasing pelvic pain and concern for underlying endometritis. Patient has been having pelvic pain since February 02. She was diagnosed with an ectopic on January 15 and was treated with methotrexate. Her hCG levels were followed until they were undetectable by January 29. Since February 02, she is been having increasing pelvic pressure and low back pain. She just has been feeling ?awful?. She has noted no fevers or chills. She does feel some pelvic pressure, pressure with urination but no irritative urinary symptoms such as dysuria, frequency or urgency. She did see Dr. Nielsen in [facility] on February 17. She did do a pelvic exam and patient notes since that time her pelvic pain increased. She was concerned about endometritis in did place her on levofloxacin and metronidazole for 7 days. She was hoping it to have improvement in patient's symptoms within 24 to [address] Coffman her primary in clinic today with worsening symptoms, they spoke with Dr. Suppes day, she recommended ED visit for CT imaging. Patient took ibuprofen this morning, did take a half [place] around lunch time. Movement and sitting really increase her symptoms. She is status post in 2020, had a remote laparoscopic surgery in 2013 for pelvic pain, no endometriosis was found. Patient is not experiencing any vaginal discharge. <Carmen Vaughn MD - Last Filed: 02/20/24 16:17> Related Data Home Medications: Home Medications ?Medication ?Instructions ?Recorded ?Confirmed alprazolam 0.5 mg tablet mg PO 12/11/22 02/18/24 hydroxychloroquine 200 mg tablet 200 mg PO BID 12/11/22 02/20/24 infliximab-abda 100 mg intravenous IV 12/11/22 02/18/24 solution (Renflexis) metformin 500 mg tablet,extended 2,000 mg PO DAILY 12/11/22 02/20/24 release 24 hr sertraline 100 mg tablet 100 mg PO DAILY 12/11/22 02/20/24 acetaminophen 500 mg tablet 500 mg PO Q6H PRN 01/23/24 02/20/24 (Tylenol Extra Strength) ibuprofen 600 mg tablet 600 mg PO Q6H PRN 02/18/24 02/20/24 Previous Rx's ?Medication ?Instructions ?Recorded levofloxacin 500 mg tablet 500 mg PO Q24H 7 days #7 tabs 02/18/24 metronidazole 500 mg tablet 500 mg PO BID 7 days #14 tabs 02/18/24 <Carmen Vaughn MD - Last Filed: 02/20/24 16:17> Allergies/Adverse Reactions: Allergies Allergy/AdvReac Type Severity Reaction Status Date / Time amoxicillin Allergy Mild Verified 02/18/24 09:16 Penicillins Allergy Mild Rash Verified 02/18/24 09:16 <Carmen Vaughn MD - Last Filed: 02/20/24 16:17> Review of Systems Status of ROS Reports: 6 or more systems reviewed and unremarkable except as noted in History and below <Carmen Vaughn MD - Last Filed: 02/20/24 16:17> [facility] Medical History: Medical History Ectopic (01/16/24) ?O00.90 - Unspecified ectopic without intrauterine (ICD- 10) Anxiety and depression ?F41.9 - Anxiety disorder, unspecified (ICD-10) ?F32.A - Depression, unspecified (ICD-10) Viral illness ?B34.9 - Viral infection, unspecified (ICD-10) Sore throat ?J02.9 - Acute pharyngitis, unspecified (ICD-10) <Carmen Vaughn MD - Last Filed: 02/20/24 16:17> Surgical History: Surgical History History of exploratory laparotomy ?Z98.890 - Other specified postprocedural states (ICD-10) History of section (08/17/20) ?Z98.891 - History of uterine scar from previous surgery (ICD-10) <Carmen Vaughn MD - Last Filed: 02/20/24 16:17> Social History: Social History Smoking Status: Never smoker Do you use any of these nicotine containing products: None Second hand tobacco smoke exposure: No How often do you have a drink containing alcohol: never AUDIT-C Alcohol total score: 0 Non-prescribed substance use: denies use Are you now , , , , never or living with a partner: Social isolation score (0-1 are the most socially isolated patients): 1 <Carmen Vaughn MD - Last Filed: 02/20/24 16:17> Exam Const: Vital Signs, click to edit/add: Vital Signs - 24 hr 02/20/24 14:26 Temperature 98.5 F Pulse Rate [Right Radial] 94 Respiratory Rate 16 Blood Pressure [Ri ght Upper Arm] 114/84 Pulse Oximetry 94 Oxygen Delivery Me thod Room Air Patient is alert, interactive, no apparent distress. She does notably have significant increase in pain when she attempts to sit down and lie back onto the bed. Sclera clear, face atraumatic. Lungs are clear, good air entry, no wheezing or crackles. CV regular rate and rhythm, no murmur, normal S1-S2, no S3-S4. Abdomen is soft and nondistended she has right lower quadrant pain worse than suprapubic and left lower quadrant but there is pain throughout the lower abdomen. There is no rebound or guarding, no organomegaly noted. Bowel sounds are present. Pelvic exam deferred at this time. Patient was ambulatory into the ED of her own accord. Note no skin changes on skin visualized. <Carmen Vaughn MD - Last Filed: 02/20/24 16:17> Vital Signs, click to edit/add: Vital Signs - 24 hr 02/20/24 14:26 Temperature 98.5 F Pulse Rate [Right Radial] 94 Respiratory Rate 16 Blood Pressure [Ri ght Upper Arm] 114/84 Pulse Oximetry 94 Oxygen Delivery Me thod Room Air <Phi Briceño DO - Last Filed: 02/20/24 18:35> Documenting provider has reviewed patient's vital signs: yes <Carmen Vaughn MD - Last Filed: 02/20/24 16:17> Course Vital Signs Vital signs: Initial Vital Signs Temperature 98.5 F 02/20/24 14:26 Temperature Source Temporal Artery Scan 02/20/24 14:26 Pulse Rate 94 02/20/24 14:26 Pulse Rhythm Regular 02/20/24 14:26 Respiratory Rate 16 02/20/24 14:26 Blood Pressure 114/84 02/20/24 14:26 Blood Pressure Mean 94 02/20/24 14:26 Pulse Oximetry 94 02/20/24 14:26 Oxygen Delivery Method Room Air 02/20/24 14:26 Vital Signs Temperature 98.5 F 02/20/24 14:26 Pulse Rate 94 02/20/24 14:26 Respiratory Rate 16 02/20/24 14:26 Blood Pressure 114/84 02/20/24 14:26 Pulse Oximetry 94 02/20/24 14:26 Oxygen Delivery Method Room Air 02/20/24 14:26 Temperature 98.5 F 02/20/24 14:26 Pulse Rate 94 02/20/24 14:26 Respiratory Rate 16 02/20/24 14:26 Blood Pressure 114/84 02/20/24 14:26 Pulse Oximetry 94 02/20/24 14:26 Oxygen Delivery Method Room Air 02/20/24 14:26 <Carmen Vaughn MD - Last Filed: 02/20/24 16:17> Initial Vital Signs Temperature 98.5 F 02/20/24 14:26 Temperature Source Temporal Artery Scan 02/20/24 14:26 Pulse Rate 94 02/20/24 14:26 Pulse Rhythm Regular 02/20/24 14:26 Respiratory Rate 16 02/20/24 14:26 Blood Pressure 114/84 02/20/24 14:26 Blood Pressure Mean 94 02/20/24 14:26 Pulse Oximetry 94 02/20/24 14:26 Oxygen Delivery Method Room Air 02/20/24 14:26 Vital Signs Temperature 98.5 F 02/20/24 14:26 Pulse Rate 94 02/20/24 14:26 Respiratory Rate 16 02/20/24 14:26 Blood Pressure 114/84 02/20/24 14:26 Pulse Oximetry 94 02/20/24 14:26 Oxygen Delivery Method Room Air 02/20/24 14:26 Temperature 98.5 F 02/20/24 14:26 Pulse Rate 94 02/20/24 14:26 Respiratory Rate 16 02/20/24 14:26 Blood Pressure 114/84 02/20/24 14:26 Pulse Oximetry 94 02/20/24 14:26 Oxygen Delivery Method Room Air 02/20/24 14:26 <Phi Briceño DO - Last Filed: 02/20/24 18:35> Medications Administered Medications: Discontinued Medications Generic Name Dose Route Start Last Admin Trade Name Freq PRN Reason Stop Dose Admin Ketorolac Tromethamine 15 mg 02/20/24 14:50 02/20/24 15:02 Ketorolac 15 Mg/Ml Inj IVP 02/20/24 14:51 15 mg ONCE ONE Administration <Carmen Vaughn MD - Last Filed: 02/20/24 16:17> Discontinued Medications Generic Name Dose Route Start Last Admin Trade Name Freq PRN Reason Stop Dose Admin Ketorolac Tromethamine 15 mg 02/20/24 14:50 02/20/24 15:02 Ketorolac 15 Mg/Ml Inj IVP 02/20/24 14:51 15 mg ONCE ONE Administration <Phi Briceño DO - Last Filed: 02/20/24 18:35> MDM - Abdominal Pain MDM Narrative Medical decision making narrative: This is a patient with worsening pelvic pain with recent use of methotrexate for probable ectopic , increasing pelvic pain despite treatment with Levaquin and methotrexate, has taken 2 days worth of this medicine. Will proceed with laboratory evaluation and CT of her abdomen and pelvis. Will give her a dose of IV Toradol, she will let me know if that is not sufficient for pain management. <Carmen Vaughn MD - Last Filed: 02/20/24 16:17> Patient signed out to me pending lab work and CT scan. CBC, CMP, CRP, pro calcitonin, urinalysis all returned showing no concerning abnormalities. She continues to have pain though. CT scan returned reviewed by myself and the radiologist shows no acute concerning abnormalities. Did state that if there is concern for endometritis ultrasound may be of benefit. I spoke to Dr. Wells of OB and she does not think an ultrasound is necessary at this time as it would be unusual to see endometritis and products a retained conception this far after a ectopic within already normal ultrasound. She came down to evaluate the patient though and at this time will admit her for concern for PID. <Phi Briceño DO - Last Filed: 02/20/24 18:35> Lab Data Attestation: I reviewed the patient's lab results. <Carmen Vaughn MD - Last Filed: 02/20/24 16:17> Labs: Lab Results 02/20/24 02/20/24 Range/Units 15:00 15:05 WBC 5.39 (4.50-11.00) K/uL RBC 4.12 (4.00-5.20) m/uL Hgb 12.8 (12.0-16.0) gm/dL Hct 37.7 (33.0-51.0) % MCV 92 (80-100) fL MCH 31 (26-34) pg MCHC 34 (32-36) gm/dL RDW Coeff of Mimi 12.1 (11.5-15.5) % Plt Count 188 (140-440) K/uL Neut % (Auto) 26.5 L (42.0-72.0) % Lymph % (Auto) 57.7 H (20-44) % [place] % (Auto) 10.4 (0.0-11.0) % Eos % (Auto) 4.6 (0.0-7.0) % Baso % (Auto) 0.6 (0.0-3.0) % Neut # (Auto) 1.40 L (1.7-7.0) K/uL Lymph # (Auto) 3.10 H (0.90-2.90) K/uL [place] # (Auto) 0.60 (0.00-0.90) K/UL Eos # (Auto) 0.25 (0.00-0.50) K/uL Baso # (Auto) 0.03 (0.00-0.30) K/uL Abs Immat Gran (auto) 0.01 (0.00-0.30) K/uL Imm/Tot Granulo (auto) 0.2 % Sodium 138 (135-149) mmol/L Potassium 4.1 (3.6-5.1) mmol/L Chloride 106 (96-114) mmol/L Carbon Dioxide 23 (20-32) mmol/L Anion Gap 9 (7-15) mEq/L BUN 7 (5-24) mg/dL Creatinine 0.5 (0.5-1.5) mg/dL Estimated Creat Clear 143.36 Estimated GFR 130 ml/min Glucose 77 (60-115) mg/dL Lactate 1.2 (0.5-1.9) mmol/L Calcium 9.2 (8.4-10.6) mg/dL Total Bilirubin 0.4 (0.1-1.5) mg/dL AST 21 (12-35) U/L ALT 14 (4-35) U/L Alkaline Phosphatase 31 L (40-150) U/L C-Reactive Protein < 0.5 L (0.5-1.0) mg/dL Total Protein 7.1 (6.0-8.3) g/dL Albumin 4.5 (3.3-5.0) g/dL Procalcitonin < 0.03 L (<0.50) ng/mL Urine Color Yellow (Yellow) Urine Appearance Clear (Clear) Urine pH 5.5 (5.0-8.5) Ur Specific [place] <= 1.005 (1.000-1.030) Urine Protein Negative (Negative) Urine Glucose (UA) Negative (Negative) Urine Ketones Negative (Negative) Urine Blood Negative (Negative) Urine Nitrite Negative (Negative) Urine Bilirubin Negative (Negative) Urine Urobilinogen 0.2 (0.2-1.0) Ur Leukocyte Esterase Negative (Negative) Urine RBC 0-2 (0-2) Urine WBC 0-2 (0-5) Ur Squamous Epith Cells None (None-Few) Urine Bacteria Few A (None) <Carmen Vaughn MD - Last Filed: 02/20/24 16:17> Lab Results 02/20/24 02/20/24 Range/Units 15:00 15:05 WBC 5.39 (4.50-11.00) K/uL RBC 4.12 (4.00-5.20) m/uL Hgb 12.8 (12.0-16.0) gm/dL Hct 37.7 (33.0-51.0) % MCV 92 (80-100) fL MCH 31 (26-34) pg MCHC 34 (32-36) gm/dL RDW Coeff of Mimi 12.1 (11.5-15.5) % Plt Count 188 (140-440) K/uL Neut % (Auto) 26.5 L (42.0-72.0) % Lymph % (Auto) 57.7 H (20-44) % [place] % (Auto) 10.4 (0.0-11.0) % Eos % (Auto) 4.6 (0.0-7.0) % Baso % (Auto) 0.6 (0.0-3.0) % Neut # (Auto) 1.40 L (1.7-7.0) K/uL Lymph # (Auto) 3.10 H (0.90-2.90) K/uL [place] # (Auto) 0.60 (0.00-0.90) K/UL Eos # (Auto) 0.25 (0.00-0.50) K/uL Baso # (Auto) 0.03 (0.00-0.30) K/uL Abs Immat Gran (auto) 0.01 (0.00-0.30) K/uL Imm/Tot Granulo (auto) 0.2 % Sodium 138 (135-149) mmol/L Potassium 4.1 (3.6-5.1) mmol/L Chloride 106 (96-114) mmol/L Carbon Dioxide 23 (20-32) mmol/L Anion Gap 9 (7-15) mEq/L BUN 7 (5-24) mg/dL Creatinine 0.5 (0.5-1.5) mg/dL Estimated Creat Clear 143.36 Estimated GFR 130 ml/min Glucose 77 (60-115) mg/dL Lactate 1.2 (0.5-1.9) mmol/L Calcium 9.2 (8.4-10.6) mg/dL Total Bilirubin 0.4 (0.1-1.5) mg/dL AST 21 (12-35) U/L ALT 14 (4-35) U/L Alkaline Phosphatase 31 L (40-150) U/L C-Reactive Protein < 0.5 L (0.5-1.0) mg/dL Total Protein 7.1 (6.0-8.3) g/dL Albumin 4.5 (3.3-5.0) g/dL Procalcitonin < 0.03 L (<0.50) ng/mL Urine Color Yellow (Yellow) Urine Appearance Clear (Clear) Urine pH 5.5 (5.0-8.5) Ur Specific [place] <= 1.005 (1.000-1.030) Urine Protein Negative (Negative) Urine Glucose (UA) Negative (Negative) Urine Ketones Negative (Negative) Urine Blood Negative (Negative) Urine Nitrite Negative (Negative) Urine Bilirubin Negative (Negative) Urine Urobilinogen 0.2 (0.2-1.0) Ur Leukocyte Esterase Negative (Negative) Urine RBC 0-2 (0-2) Urine WBC 0-2 (0-5) Ur Squamous Epith Cells None (None-Few) Urine Bacteria Few A (None) <Phi Briceño DO - Last Filed: 02/20/24 18:35> Discharge Plan Discharge Clinical Impression: Pelvic pain <Carmen Vaughn MD - Last Filed: 02/20/24 16:17> Patient Disposition: Admitted As Observation <Carmen Vaughn MD - Last Filed: 02/20/24 16:17> Condition: Stable <Carmen Vaughn MD - Last Filed: 02/20/24 16:17> Prescriptions: No Action acetaminophen [Tylenol Extra Strength] 500 mg tablet 500 mg PO Q6H PRN ibuprofen 600 mg tablet 600 mg PO Q6H PRN levofloxacin 500 mg tablet 500 mg PO Q24H 7 Days Qty: 7 0RF metronidazole 500 mg tablet 500 mg PO BID 7 Days Qty: 14 0RF sertraline 100 mg tablet 100 mg PO DAILY Renflexis 100 mg recon soln IV hydroxychloroquine 200 mg tablet 200 mg PO BID metformin 500 mg tablet extended release 24 hr 2,000 mg PO DAILY alprazolam 0.5 mg tablet PO <Carmen Vaughn MD - Last Filed: 02/20/24 16:17> Follow Up/Referrals: Madhavi Alejandra, PALydiaC [Primary Care Provider] - <Carmen Vaughn MD - Last Filed: 02/20/24 16:17>
[2024-02-20] MEDS: KETOROLAC 15 MG/ML inj IVP (15:02)
[2024-02-20 15:08] LABS: Lactate* 1.2 mmol/L (0.5-1.9)
[2024-02-20 15:15] LABS: Basophils Absolute Auto 0.03 K/uL (0.00-0.30); Basophils Percent Auto 0.6 % (0.0-3.0); Eosinophils Absolute Auto 0.25 K/uL (0.00-0.50); Eosinophils Percent Auto 4.6 % (0.0-7.0); Hematocrit 37.7 % (33.0-51.0); Hemoglobin* 12.8 gm/dL (12.0-16.0); Immature Granulocytes Abs Auto 0.01 K/uL (0.00-0.30); Immature Granulocytes Pct Auto 0.2 %; Lymphocytes Percent Auto 57.7 % (20-44); Mean Corpuscular HGB Conc 34 gm/dL (32-36); Mean Corpuscular Hemoglobin 31 pg (26-34); Mean Corpuscular Volume 92 fL (80-100); Monocytes Percent Auto 10.4 % (0.0-11.0); Neutrophils Percent Auto 26.5 % (42.0-72.0); Platelet Count* 188 K/uL (140-440); RDW Coefficient of Variation % 12.1 % (11.5-15.5); Red Blood Count 4.12 m/uL (4.00-5.20); Slide Review Reflex No; White Blood Count* 5.39 K/uL (4.50-11.00)
[2024-02-20 15:36] LABS: Appearance Urine Clear (Clear); Bilirubin Urine Negative (Negative); Blood Urine Negative (Negative); Color Urine Yellow (Yellow); Glucose Urine Negative (Negative); Ketones Urine Negative (Negative); Leukocyte Esterase Urine Negative (Negative); Nitrite Urine Negative (Negative); Protein Urine Negative (Negative); Specific Gravity Urine <= 1.005 (1.000-1.030); Urobilinogen Urine 0.2 (0.2-1.0); pH Urine 5.5 (5.0-8.5)
[2024-02-20 15:46] LABS: Albumin* 4.5 g/dL (3.3-5.0); Chloride* 106 mmol/L (96-114)
[2024-02-20 15:47] LABS: Potassium* 4.1 mmol/L (3.6-5.1); Sodium* 138 mmol/L (135-149)
[2024-02-20 15:49] LABS: Anion Gap 9 mEq/L (7-15); Bilirubin Total* 0.4 mg/dL (0.1-1.5); Carbon Dioxide* 23 mmol/L (20-32); Creatinine* 0.5 mg/dL (0.5-1.5); Est. Creatinine Clearance* 143.36; Estimated Glomerular Filt Rate 130 ml/min
[2024-02-20 15:50] LABS: Alanine Aminotransferase* 14 U/L (4-35); Alkaline Phosphatase* 31 U/L (40-150); Aspartate Amino Transferase* 21 U/L (12-35); Blood Urea Nitrogen* 7 mg/dL (5-24); Calcium* 9.2 mg/dL (8.4-10.6); Glucose* 77 mg/dL (60-115); Total Protein* 7.1 g/dL (6.0-8.3)
[2024-02-20 16:05] LABS: Bacteria Urine Few; RBC Urine 0-2 (0-2); WBC Urine 0-2 (0-5)
[2024-02-20 16:11] LABS: C Reactive Protein* < 0.5 mg/dL (0.5-1.0); Procalcitonin* < 0.03 ng/mL (<0.50)
--- NOTE | 2024-02-20 18:43 | PM.GYNHPNOR ---
NURSING ATTENDANT - H&P:HPI Medical History of Present Illness Time Seen by Provider: 18:45 Date Seen: 02/20/24 Narrative: Amparo Correa is a 28 year old female seen in the ED given persistent pelvic pain and nausea. Recent gynecologic history notable for of unknown location, treated with methotrexate in late December. Hcg appropriately was trended to zero following MTX. She was seen in follow up by her PCP then referred to Dr. Nielsen on on 02/17, where she reported persistent ongoing pain and nausea. Please see Dr. Nielsen' note for complete details. Briefly, she was started on antibiotics for suspected endometritis given ongoing pain and uterine tenderness. She was given strict return precautions. Amparo spoke to her PCP today who then reviewed case again with Dr. Nielsen, who recommended presentation to the ED for further imaging. CT A/P was obtained and is within normal limits. There is a possible left kidney stone, not consistent with patient's site of pain. Her lab evaluation was entirely within normal limits, no WHC count or elevated procalcitonin. She was noted to be hemodynamically stable on afebrile. On arrival, Amparo affirmed the above history. She notes her pain is greatly exacerbated since her recent pelvic exam and has not demonstrated significant improvement despite antibiotics. She notes persistent nausea without vomiting, low appetite. She denies any bowel or bladder concerns. Denies fevers/chills, but generally feels poorly. Denies any abnormal vaginal discharge or bleeding. She has not been sexually active since her early loss. Meds Home Medications and Allergies Home Medications ?Medication ?Instructions ?Recorded ?Confirmed ?Type alprazolam 0.5 mg tablet mg PO 12/11/22 02/18/24 History hydroxychloroquine 200 mg tablet 200 mg PO BID 12/11/22 02/20/24 History infliximab-abda 100 mg intravenous IV 12/11/22 02/18/24 History solution (Renflexis) metformin 500 mg tablet,extended 2,000 mg PO DAILY 12/11/22 02/20/24 History release 24 hr sertraline 100 mg tablet 100 mg PO DAILY 12/11/22 02/20/24 History acetaminophen 500 mg tablet 500 mg PO Q6H PRN 01/23/24 02/20/24 History (Tylenol Extra Strength) ibuprofen 600 mg tablet 600 mg PO Q6H PRN 02/18/24 02/20/24 History Allergies Allergy/AdvReac Type Severity Reaction Status Date / Time amoxicillin Allergy Mild Verified 02/18/24 09:16 Penicillins Allergy Mild Rash Verified 02/18/24 09:16 PFSH Active Problems (Updated 02/20/24 @ 18:34 by Phi Briceño DO) Pelvic pain (Acute) ?R10.2 - Pelvic and perineal pain (ICD-10) Endometritis after ectopic (Acute ~01/2024) ?O00.90 - Unspecified ectopic without intrauterine (ICD-10) ?O08.0 - Genital tract and pelvic infection following ectopic and molar (ICD-10) Rheumatoid arthritis (Acute) ?M06.9 - Rheumatoid arthritis, unspecified (ICD-10) Bronchitis (Acute) ?J40 - Bronchitis, not specified as acute or chronic (ICD-10) Viral illness (Acute) ?B34.9 - Viral infection, unspecified (ICD-10) Sore throat (Acute) ?J02.9 - Acute pharyngitis, unspecified (ICD-10) Medical History Ectopic (01/16/24) ?O00.90 - Unspecified ectopic without intrauterine (ICD-10) Anxiety and depression ?F41.9 - Anxiety disorder, unspecified (ICD-10) ?F32.A - Depression, unspecified (ICD-10) Viral illness ?B34.9 - Viral infection, unspecified (ICD-10) Sore throat ?J02.9 - Acute pharyngitis, unspecified (ICD-10) Surgical History History of exploratory laparotomy ?Z98.890 - Other specified postprocedural states (ICD-10) History of section (08/17/20) ?Z98.891 - History of uterine scar from previous surgery (ICD-10) Social History Smoking Status: Never smoker Do you use any of these nicotine containing products: None Second hand tobacco smoke exposure: No How often do you have a drink containing alcohol: never AUDIT-C Alcohol total score: 0 Non-prescribed substance use: denies use Are you now , , , , never or living with a partner: Social isolation score (0-1 are the most socially isolated patients): 1 Reproductive Health History : 2 Para: 1 (1011) History of ectopic pregnancies: Yes NURSING ATTENDANT - Exam Physical Exam: Vital signs: Temp Pulse Resp BP Pulse Ox O2 Del Method 98.5 F 94 16 114/84 94 Room Air 02/20/24 14:26 02/20/24 14:26 02/20/24 14:26 02/20/24 14:26 02/20/24 14:26 02/20/24 14:26 Narrative: General: Alert and oriented, in no acute distress Psych: Appropriate mood and affect Abdomen: Soft, nondistended. Tenderness throughout palpation in the lower abdomen that patient notes refers to the suprapubic/uterine region. She has both tenderness to palpation and some rebound. No guarding. Pelvic: External genital exam WNL. Speculum inserted, cervix is pink and without lesion/erythema. No abnormal vaginal discharge. Swabs for GC/chlamydia, wet prep and bacterial culture obtained and sent. Bimanual exam was not repeated given history of trauma, worsened pain with prior bimanual exam and the fact that this would not alter our plan. ED RN present as exam stock driver. NURSING ATTENDANT - Results Labs Labs: Short CBC 02/20/24 Range/Units 15:00 WBC 5.39 (4.50-11.00) K/uL Hgb 12.8 (12.0-16.0) gm/dL Hct 37.7 (33.0-51.0) % Plt Count 188 (140-440) K/uL BMP 02/20/24 15:00 Sodium 138 Potassium 4.1 Chloride 106 Carbon Dioxide 23 BUN 7 Creatinine 0.5 Glucose 77 Calcium 9.2 Liver Function 02/20/24 Range/Units 15:00 Total Bilirubin 0.4 (0.1-1.5) mg/dL AST 21 (12-35) U/L ALT 14 (4-35) U/L Alkaline Phosphatase 31 L (40-150) U/L Albumin 4.5 (3.3-5.0) g/dL Urine 02/20/24 Range/Units 15:05 Urine Color Yellow (Yellow) Urine Appearance Clear (Clear) Urine pH 5.5 (5.0-8.5) Ur Specific [place] <= 1.005 (1.000-1.030) Urine Protein Negative (Negative) Urine Glucose (UA) Negative (Negative) Assessment and Plan Assessment and plan (1) Endometritis after ectopic : Status: Acute Assessment and Plan: Amparo is a 28yo admitted for ongoing pelvic pain following outpatient treatment of suspected endometritis. Recent Company [employer] history notable for PUL managed with methotrexate in late December. She has had a negative hCG and normal CT A/P and pelvic US since that time. Today, repeat CT A/P was negative for acute pathology. Afebrile, hemodynamically stable, no leukocytosis or elevated procalcitonin. Abdominal exam notable for ongoing fundal tenderess with some associated peritoneal irritation due to referred pain and rebound. Plan to admit for IV antibiotics for suspected endometritis. I question what role her RA regimen may have in terms of suppressing and inflammatory response to infection. - - Start gentamicin 5mg/kg q24h and clindamycin 900mg Q8H for at least 24 hours. - Repeat CBC in the morning - hCG added on to ED labs to ensure this has remained negative (very unlikely to be retained POC or molar gestation, but simply out of an abundance of precautions given her atypical course) - Toradol, tylenol and oxycodone PRN for pain - [facility] Dr. [place]. (2) Pelvic pain: Status: Acute (3) Rheumatoid arthritis: Status: Acute
--- NOTE | 2024-02-20 18:45 | ED.NURSE ---
Pt report given to [facility] nurse Kelley. Pt to room 257.
[2024-02-20 18:55] VITALS: BP 129/98; PULSE 80; RESP 16; TEMP 36.6; O2SAT 96; BMI 27.0
[2024-02-20 19:14] LABS: Clue Cells No Clue Cells Seen (None Seen); Trichomonas No Trichomonas Seen (None Seen); Yeast No Yeast Seen (None Seen)
--- NOTE | 2024-02-20 19:21 | PC.NURSE ---
Pt arrived to M/S at 1849. VS WNL and LS COA. Afebrile. Pt pleasant, cooperative, and able to verbalize needs. Rates pain 6/10, standing order for Tylenol and Aqua-K added.
[2024-02-20] MEDS: CLINDAMYCIN 900 MG/50 ML-D5W 900 MG/50 ML PIGGYBACK 100 MG IVPB (20:00)
[2024-02-20 20:23] LABS: Chlamydia DNA Amplified* NOT DETECTED (No Detected); GC DNA Amplified* NOT DETECTED (No Detected)
[2024-02-20 21:53] LABS: HCG Quantitative* < 2.39 mIU/mL
[2024-02-20] MEDS: KETOROLAC 30 MG/ML inj IVP (22:11)
[2024-02-20 23:00] VITALS: BP 108/79; PULSE 75; RESP 16; TEMP 36.6; O2SAT 98
[2024-02-21] MEDS: CLINDAMYCIN 900 MG/50 ML-D5W 900 MG/50 ML PIGGYBACK 100 MG IVPB ×3 (03:23→20:09)
[2024-02-21] MEDS: KETOROLAC 30 MG/ML inj IVP ×4 (04:03→22:42)
--- NOTE | 2024-02-21 05:53 | PC.NURSE ---
End of shift [id number]: Alert and oriented x 4. Pain to pelvic/perineal area managed with rest, heat and PRN medications. Denies any nausea or vomiting.
[2024-02-21 06:29] LABS: Basophils Absolute Auto 0.01 K/uL (0.00-0.30); Basophils Percent Auto 0.2 % (0.0-3.0); Eosinophils Absolute Auto 0.22 K/uL (0.00-0.50); Eosinophils Percent Auto 4.3 % (0.0-7.0); Hematocrit 36.3 % (33.0-51.0); Hemoglobin* 12.2 gm/dL (12.0-16.0); Immature Granulocytes Abs Auto 0.02 K/uL (0.00-0.30); Immature Granulocytes Pct Auto 0.4 %; Lymphocytes Percent Auto 60.2 % (20-44); Mean Corpuscular HGB Conc 34 gm/dL (32-36); Mean Corpuscular Hemoglobin 31 pg (26-34); Mean Corpuscular Volume 92 fL (80-100); Neutrophils Percent Auto 27.9 % (42.0-72.0); Platelet Count* 163 K/uL (140-440); RDW Coefficient of Variation % 12.2 % (11.5-15.5); Red Blood Count 3.93 m/uL (4.00-5.20); White Blood Count* 5.12 K/uL (4.50-11.00)
[2024-02-21 06:32] LABS: Slide Review Reflex No
[2024-02-21 07:00] VITALS: BP 117/83; PULSE 80; RESP 16; TEMP 36.9; O2SAT 97
[2024-02-21] MEDS: ACETAMINOPHEN 325 MG TABLET 650 MG PO ×2 (09:10→15:11)
[2024-02-21] MEDS: SERTRALINE 100 MG TABLET PO (09:10)
--- NOTE | 2024-02-21 09:12 | P.GYNPN_ITS ---
Progress Note: A&P Assessment and plan (1) Pelvic pain: Status: Acute (2) Endometritis after ectopic : Status: Acute Plan Continue IV antibiotics for a total of 24-48 hours. I suspect that her RA treatment may be blunting the normal response to infection, as she continues to be afebrile and has no elevation in WBC or inflammatory markers to follow. Will prescribe a sleep aid for tonight. Reassess in am tomorrow. HOME IMPROVEMENT CONTRACTOR- PN:Subj Non-OR Subjective Time Seen by Provider: 09:00 Date Seen: 02/21/24 Interval history: Feels somewhat better this morning. Nausea improved, was able to eat breakfast. Pain improved on Toradol, rates it at a 5/10. HOME IMPROVEMENT CONTRACTOR-PN: Obj Exam Physical Exam: Vital signs: Temp Pulse Resp BP Pulse Ox O2 Del Method 98.4 F 80 16 117/83 97 Room Air 02/21/24 07:00 02/21/24 07:00 02/21/24 07:00 02/21/24 07:00 02/21/24 07:00 02/21/24 07:00 Constitutional: Constitutional: no acute distress and cooperative Comments: Sitting reclined in bed, smiling. Routine Respiratory Exam: Comments: Normal respiratory effort. Routine Cardiovascular Exam: Cardiovascular: Present RRR Routine Abdominal Exam: Abdominal: Present soft; Absent distended HOME IMPROVEMENT CONTRACTOR - PN: Obj Data Labs Labs: Laboratory Results - last 24 hr 02/20/24 02/20/24 02/20/24 15:00 15:05 Unknown WBC 5.39 RBC 4.12 Hgb 12.8 Hct 37.7 MCV 92 MCH 31 MCHC 34 RDW Coeff of Mimi 12.1 Plt Count 188 Neut % (Auto) 26.5 L Lymph % (Auto) 57.7 H Huntington % (Auto) 10.4 Eos % (Auto) 4.6 Baso % (Auto) 0.6 Neut # (Auto) 1.40 L Lymph # (Auto) 3.10 H Huntington # (Auto) 0.60 Eos # (Auto) 0.25 Baso # (Auto) 0.03 Abs Immat Gran (auto) 0.01 Imm/Tot Granulo (auto) 0.2 Sodium 138 Potassium 4.1 Chloride 106 Carbon Dioxide 23 Anion Gap 9 BUN 7 Creatinine 0.5 Estimated Creat Clear 143.36 Estimated GFR 130 Glucose 77 Lactate 1.2 Calcium 9.2 Total Bilirubin 0.4 AST 21 ALT 14 Alkaline Phosphatase 31 L C-Reactive Protein < 0.5 L Total Protein 7.1 Albumin 4.5 Procalcitonin < 0.03 L HCG, Quant < 2.39 Urine Color Yellow Urine Appearance Clear Urine pH 5.5 Ur Specific Amanda <= 1.005 Urine Protein Negative Urine Glucose (UA) Negative Urine Ketones Negative Urine Blood Negative Urine Nitrite Negative Urine Bilirubin Negative Urine Urobilinogen 0.2 Ur Leukocyte Esterase Negative Urine RBC 0-2 Urine WBC 0-2 Ur Squamous Epith Cells None Urine Bacteria Few A Vaginal Trichomonas No Trichomonas Seen Vaginal Yeast No Yeast Seen Vaginal Clue Cells No Clue Cells Seen C.trachomatis Ampl DNA NOT DETECTED N.gonorrhoeae Ampl DNA NOT DETECTED 02/21/24 06:06 WBC 5.12 RBC 3.93 L Hgb 12.2 Hct 36.3 MCV 92 MCH 31 MCHC 34 RDW Coeff of Mimi 12.2 Plt Count 163 Neut % (Auto) 27.9 L Lymph % (Auto) 60.2 H Huntington % (Auto) 7.0 Eos % (Auto) 4.3 Baso % (Auto) 0.2 Neut # (Auto) 1.40 L Lymph # (Auto) 3.10 H Huntington # (Auto) 0.40 Eos # (Auto) 0.22 Baso # (Auto) 0.01 Abs Immat Gran (auto) 0.02 Imm/Tot Granulo (auto) 0.4 Sodium Potassium Chloride Carbon Dioxide Anion Gap BUN Creatinine Estimated Creat Clear Estimated GFR Glucose Lactate Calcium Total Bilirubin AST ALT Alkaline Phosphatase C-Reactive Protein Total Protein Albumin Procalcitonin HCG, Quant Urine Color Urine Appearance Urine pH Ur Specific Amanda Urine Protein Urine Glucose (UA) Urine Ketones Urine Blood Urine Nitrite Urine Bilirubin Urine Urobilinogen Ur Leukocyte Esterase Urine RBC Urine WBC Ur Squamous Epith Cells Urine Bacteria Vaginal Trichomonas Vaginal Yeast Vaginal Clue Cells C.trachomatis Ampl DNA N.gonorrhoeae Ampl DNA
[2024-02-21 11:00] VITALS: BP 112/69; PULSE 78; RESP 18; TEMP 36.4; O2SAT 97
[2024-02-21] MEDS: 0.9 % SODIUM CHLORIDE 250 ml IV (12:05)
[2024-02-21 15:00] VITALS: BP 113/86; PULSE 64; RESP 18; TEMP 36.7; O2SAT 98
[2024-02-21] MEDS: SODIUM CHLORIDE 0.9 % (FLUSH) 10 ML SYRINGE 5 ML IVF (17:11)
--- NOTE | 2024-02-21 18:12 | PC.NURSE ---
End of shift-- Very pleasant and cooperative, alert and oriented patient. VSS and pt is afebrile. SPO2 maintained >94% on RA. She c/o abdominal pain which she rated from 4-7 out of 10 today but appears well managed with Tylenol and Toradol q6h PRN. LS CTA. She denied nausea and ate 50-100% of 3 meals today. She did c/o food tasting off this evening and a couple loose stools this afternoon. Pt was up independently in her room and ambulating in the hallway and tolerated it well. and son were at bedside today and appear loving and supportive. 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
[2024-02-21 19:00] VITALS: BP 115/73; PULSE 84; RESP 18; TEMP 36.5; O2SAT 96
[2024-02-21] MEDS: LORazepam 0.5 MG TABLET PO (19:25)
[2024-02-21] MEDS: HYDROXYCHLOROQUINE 200 MG TABLET PO (20:50)
[2024-02-21] MEDS: ZOLPIDEM 5 MG TABLET 2.5 MG PO (22:42)
[2024-02-21 23:00] VITALS: PULSE 84; RESP 18
[2024-02-21 23:30] VITALS: RESP 16
[2024-02-22] MEDS: CLINDAMYCIN 900 MG/50 ML-D5W 900 MG/50 ML PIGGYBACK 100 MG IVPB ×3 (04:08→19:46)
[2024-02-22] MEDS: SODIUM CHLORIDE 0.9 % (FLUSH) 10 ML SYRINGE 5 ML IVF (04:47)
[2024-02-22] MEDS: KETOROLAC 30 MG/ML inj IVP ×2 (04:47→10:55)
--- NOTE | 2024-02-22 06:33 | PC.NURSE ---
End of shift report [id number]: Pleasant and cooperative. Patient reporting increased anxiety at start of shift, patient expressed worry over IV antibiotics due to previous GI upset earlier in the day associated with medication. PRN lorazepam administered prior to administration of antibiotics and patient reported decreased anxiety. Denies any nausea at this time. Pain to pelvic/perineal area reported, managed well with current PRN medications, rest and Aqua-K pad. Independent with transfers and ambulation.
[2024-02-22 07:00] VITALS: BP 116/86; PULSE 81; PULSE 87; RESP 18; TEMP 36.4; O2SAT 97
[2024-02-22] MEDS: CETIRIZINE HCL 10 MG TABLET PO (09:37)
[2024-02-22] MEDS: SERTRALINE 100 MG TABLET PO (09:38)
[2024-02-22] MEDS: HYDROXYCHLOROQUINE 200 MG TABLET PO ×2 (09:38→21:39)
[2024-02-22] MEDS: ACETAMINOPHEN 325 MG TABLET 650 MG PO ×2 (09:43→17:11)
[2024-02-22 11:00] VITALS: BP 120/78; PULSE 87; RESP 18; TEMP 36.4; O2SAT 97
--- NOTE | 2024-02-22 11:21 | PM.GYNDS1 ---
DS: Providers Provider Time Seen by Provider: 10:45 Date Seen: 02/22/24 Date of admission: 02/21/24 16:13 Primary care physician: Madhavi Alejandra PA-C Admitting Clinician: Simran Young MD Attending Physician on discharge: Fallon Nielsen MD Date of Discharge: 02/22/24 DS: Diagnosis Discharge Diagnosis (1) Pelvic pain: Status: Acute (2) Endometritis after ectopic : Status: Acute FORENSIC IDENTIFICATION SPECIALIST-Discharge Summary Hospital Course Hospital Course Narrative: Patient is a 28 year old admitted on 02/20/2024 for pelvic pain thought to be due to endometritis, failed outpatient antibiotic therapy. She was treated with IV gentamicin and IV clindamycin for approximately 48 hours. Pain was controlled with oral acetaminophen and IV Toradol. On the day of discharge, her pain was improved, though she was also having some low abdominal cramping due to loose stools. She remained afebrile throughout the hospital stay. Laboratory evaluations have vital signs were stable. Time Spent with Patient Time attestation: Total time spent providing and/or coordinating discharge services: Time spent: Greater than 30 minutes FORENSIC IDENTIFICATION SPECIALIST - Exam Physical Exam: Vital signs: Temp Pulse Resp BP Pulse Ox O2 Del Method 97.6 F 87 18 120/78 97 Room Air 02/22/24 11:00 02/22/24 11:00 02/22/24 11:00 02/22/24 11:00 02/22/24 11:00 02/22/24 11:00 Constitutional: Constitutional: no acute distress Routine Respiratory Exam: Respiratory: Present CTA bilaterally Routine Cardiovascular Exam: Cardiovascular: Present RRR Routine Abdominal Exam: Abdominal: Present soft and tenderness (Mild in the midline low abdomen); Absent distended, guarding or rebound Routine Extremities Exam: Extremities: Present normal inspection FORENSIC IDENTIFICATION SPECIALIST - DS: Data Data Completed and Pending Labs on day of discharge: Preliminary micro results at discharge 02/20/24 15:05 Urine Culture - Preliminary Urine,Clean Catch NO GROWTH AFTER 24 HOURS Discharge Plan Discharge Disposition: Home, Self-Care Date of Admission: 02/21/24 16:13 Attending Provider on Discharge: Fallon Nielsen Primary Care Provider: Madhavi Alejandra Condition: Stable Anticipated Discharge Date/Time: 02/22/24 21:00 Discharge Medications: New clindamycin HCl 300 mg capsule 300 mg PO Q8H 7 Days Qty: 21 0RF Continued acetaminophen [Tylenol Extra Strength] 500 mg tablet 500 mg PO Q6H PRN ibuprofen 600 mg tablet 600 mg PO Q6H PRN sertraline 100 mg tablet 150 mg PO DAILY Renflexis 100 mg recon soln IV hydroxychloroquine 200 mg tablet 200 mg PO BID alprazolam 0.5 mg tablet 0.5 mg PO BID PRN amitriptyline 10 mg tablet 10 mg PO HS Discontinued levofloxacin 500 mg tablet 500 mg PO Q24H 7 Days Qty: 7 0RF metronidazole 500 mg tablet 500 mg PO BID 7 Days Qty: 14 0RF metformin 500 mg tablet extended release 24 hr 2,000 mg PO DAILY Discharge Orders: Discharge Order (Routine); Ordered 02/22/24 Ordered By: Fallon Nielsen Patient Education: Endometritis (GEN) Activity Level: Activity as Tolerated Discharge Diet: Regular Follow Up Appointments: Madhavi Alejandra PA-C [Primary Care Provider] - Fallon Nielsen MD [Staff Physician] - Forms: [employer] Info Instructions Discharge Comments: Follow up with Dr. Nielsen on March 01. Call to make appointment [phone].
[2024-02-22] MEDS: IBUPROFEN 600 MG TABLET PO ×2 (14:56→21:39)
[2024-02-22] MEDS: LORazepam 0.5 MG TABLET PO (14:57)
[2024-02-22 15:00] VITALS: BP 117/87; PULSE 77; RESP 18; TEMP 36.3; O2SAT 98
[2024-02-22 19:00] VITALS: BP 117/74; PULSE 87; RESP 18; TEMP 36.8; O2SAT 100
--- NOTE | 2024-02-22 19:01 | PC.NURSE ---
End of shift-- Pleasant and cooperative, alert and oriented patient. VSS and pt is afebrile. SPO2 maintained >94% on RA. Pain appears well managed while alternating Tylenol and Motrin q3h. LS CTA. She denied nausea and tolerated a regular diet without difficulty, but does c/o an occasional loose stool. Ambulating in room and hallway independently and tolerating it well. Pt planning to discharge this evening following her antibiotics. Report to oncoming shift.
--- NOTE | 2024-02-22 22:08 | PC.NURSE ---
Patient discharged at 2153. Patient ambulated with staff down to the ER doors where patient met her . Patient rated pain 4/10 prior to discharge. Scheduled 2100 medication and PRN Ibuprofen given before leaving.
== END 2024-02-22 21:53 | disposition home or self-care (01) | DRG 759 ==
LOC: ED 18:34 → MEDSURG 18:48
PROVIDERS: Family Medicine; Admitting Provider Obstetrics & Gynecology; Emergency Provider Student in an Organized Health Care Education/Training Program; PCP Obstetrics & Gynecology; Visit Provider Obstetrics & Gynecology
DX: N71.0 Acute inflammatory disease of uterus (principal); R10.2 Pelvic and perineal pain; M06.9 Rheumatoid arthritis, unspecified; F41.9 Anxiety disorder, unspecified; F32.A Depression, unspecified; Z87.59 Personal history of other complications of pregnancy, childbirth and the puerperium
CPT/HCPCS: 36415; 74176; 80053; 81001; 83605; 84145; 84702; 85025; 86140; 87070; 87086; 87210; 87491; 87591; 99283; 99285; A9270; G0378; J0736; J1580; J1885; J7050

== ENCOUNTER 2024-03-18 09:07 | Day surgery (SDC) | payer OTHER, SELFPAY ==
[2024-03-18] VITALS (23 sets, daily range): BP systolic 112–128; BP diastolic 66–92; PULSE 65–85; RESP 15–18; TEMP 36.2–37.3; O2SAT 93–98; BMI 27.1
[2024-03-18] MEDS: SODIUM CHLORIDE 0.9 % (FLUSH) 10 ML SYRINGE IVF ×2 (09:50→21:05)
[2024-03-18] MEDS: LACTATED RINGERS 1000 ML 1,000 ML 100 ML IV ×2 (09:50→12:20)
[2024-03-18 09:53] LABS: Basophils Absolute Auto 0.02 K/uL (0.00-0.30); Basophils Percent Auto 0.4 % (0.0-3.0); Eosinophils Absolute Auto 0.18 K/uL (0.00-0.50); Eosinophils Percent Auto 3.9 % (0.0-7.0); Hematocrit 39.1 % (33.0-51.0); Lymphocytes Percent Auto 49.5 % (20-44); Mean Corpuscular HGB Conc 33 gm/dL (32-36); Mean Corpuscular Hemoglobin 31 pg (26-34); Mean Corpuscular Volume 93 fL (80-100); Monocytes Percent Auto 9.6 % (0.0-11.0); Neutrophils Percent Auto 36.6 % (42.0-72.0); Platelet Count* 145 K/uL (140-440); RDW Coefficient of Variation % 12.5 % (11.5-15.5); Red Blood Count 4.21 m/uL (4.00-5.20); White Blood Count* 4.59 K/uL (4.50-11.00)
[2024-03-18 09:56] LABS: Ur HCG Qualitative* Negative (Negative)
[2024-03-18 09:57] LABS: Slide Review Reflex No
[2024-03-18 10:09] LABS: Creatinine* 0.6 mg/dL (0.5-1.5); Est. Creatinine Clearance* 119.47; Estimated Glomerular Filt Rate 125 ml/min
--- NOTE | 2024-03-18 10:43 | W.PM.H&PU ---
History & Physical Update History & Physical Update H&P Reviewed and patient assessed: No changes noted H&P Updates: Procedure, indication, and R/B/A reviewed with patient and spouse again. Postop expectations discussed. All questions answered.
[2024-03-18] MEDS: CEFAZOLIN 2 GM INJ IVP (11:30)
--- NOTE | 2024-03-18 12:11 | P.NB_ITS ---
Nerve Block Nerve Block Time Seen by Provider: 11:39 Date Seen: 03/18/24 Type of block requested by surgeon for post-operative analgesia: TAP Side: bilateral Time out performed: Yes Verification of patient name: Yes Verification of date of : Yes Site marking: site marked Name of person performing procedure: Nathan Continuous monitoring Was continuous monitoring of O2 sat, B/P, threat monitoring analyst, recorded every 15 minutes?: Yes Procedure Checklist: sterile prep, needles and gloves Ultrasound guided. Images saved: Yes Medications given in 5ml increments after negative aspiration: Marcaine %: 0.25 mL: 30 Needle gauge: 20 and Exparel mL: 10 Patient tolerated procedure well: Yes Additional comments: Needle noted between internal oblique and transversus abdominus. Local spread visualized Block Charges Block Charge (with Pro Fee): TAP Bilateral Use of Ultrasound Machine for Block: Yes- US Guidance/pain block
--- NOTE | 2024-03-18 12:11 | W.ANESCHARGE ---
Anesthesia Charges Start Date/Time Anesthesia Start Date: 03/18/24 Anesthesia Start Time: 11:18 Stop Date/Time Anesthesia Stop Date: 03/18/24 Anesthesia Stop Time: 13:58
[2024-03-18] MEDS: MEPERIDINE 25 MG/ML INJ 12.5 MG IVP (14:00)
--- NOTE | 2024-03-18 14:01 | W.ANESCHARGE ---
Anesthesia Charges Start Date/Time Anesthesia Start Date: 03/18/24 Anesthesia Start Time: 11:18 Stop Date/Time Anesthesia Stop Date: 03/18/24 Anesthesia Stop Time: 13:58
[2024-03-18] MEDS: fentaNYL 100 MCG/2 ML inj 50 MCG IVP (14:21)
--- NOTE | 2024-03-18 15:22 | PM.GYNPRHY ---
Procedure Type of Hysterectomy: Total Laparoscopic Pre-op/Post-op diagnoses: Pre-Op/Post-Op Diagnoses Operation Date: 03/18/24 10:40 <No data on this case meets the specified criteria> Procedure: Procedures Operation Date: 03/18/24 10:40 Actual Procedure Side Surgeon p M/S-Total Laparoscopic Hysterectomy, Bilateral Salpingectomy, Cystoscopy Bilateral Jennifer Akhtar MD Transition Nurse: Rhonda Wells Estimated blood loss (mL): 50 Anesthesia Type: General and Local Complications: none Fluids: crystalloid Fluid amount (mL): 1,700 Urine output (mL): 650 Weight of Uterus: 2.293 oz Specimen: uterus, left tube and right tube Disposition: floor Narrative: Findings: On exam under anesthesia: Normal appearing external genitalia. Normal appearing cervix. The uterus was anteverted, approximately 6 week size, mobile. No masses palpable. Adnexa without mass or fullness palpable. On laparoscopy: Normal appearing uterus, bilateral fallopian tubes and ovaries. Right ovary with a physiologic cyst noted. Bilateral ureters noted to be functioning appropriately. Posterior cul-de-sac within normal limits. Normal appearing liver. Cystoscopy: The dome of the bladder was noted to be without defect and no evidence of any sutures from the vaginal cuff causing injury. Normal urine flow was noted through both ureteral orifices. Preoperative diagnosis: Amparo is a 28-year-old 2 para 1011 with menorrhagia, endometriosis, and chronic pelvic pain Postoperative diagnosis: Same Procedure: Amparo was taken to the operating room where general anesthetic was found to be adequate. She was placed in the dorsal lithotomy position and an exam under anesthesia was performed with findings stated above. She was then prepped and draped in a normal sterile manner. A Keating catheter was placed. A bivalve speculum was placed in the vaginal canal. A long tenaculum clamp was placed on the anterior lip of the cervix, in the uterus sounded to 8 cm. A small size VCare uterine manipulator was then placed. The tenaculum clamp and speculum were removed from the cervix. Attention was then turned to performing the laparoscopic portion of the procedure. All incisions were infiltrated with 1% lidocaine with epinephrine prior to incising the skin. A vertical, infraumbilical 5 mm incision was made. A 5 mm trocar was then placed under direct visualization. The abdomen was then insufflated with CO2 gas to a pressure of 15 mm of mercury. Two pelvic ports were then placed approximately 3-4 finger breaths medial to the ischial crests. The trocar in the RLQ = 5mm, LLq = 11mm. A 4th port was made in the patient's right lower quadrant, just superior medial to the left ASIS. A 5 mm Fios Kii port was inserted under direct visualization and without complication. The balloon on each of the 4 ports was inflated, holding each in place. These were placed under direct visualization. Attention was then turned to performing the hysterectomy. The left fallopian tube was grasped, dissected of the left ovary and removed with sequential pedicles using the dissecting, ligasure [place] tip dissecting forceps. Fallopian tube was removed in 2 pieces due to previous transection from tubal ligation. The left side of the hysterectomy was performed using the ligasure dissecting forceps. The 1st pedicles were starting with the broad ligament that was cauterized and and bisected. In sequence show pedicles were formed to divide the utero-ovarian ligament. Then sequential pedicles were made through the broad ligament. The posterior leaf of the broad ligament was then divided and sequential pedicles carried down to the level of the VCare cup. The anterior leaf of the broad ligament was then divided down to the level of the anterior aspect of the VCare cup and a bladder flap created. Lysis of adhesion performed to take the down the bladder flap. The uterine vessels were then skeletonized. The uterine vessels were then cauterized and divided. Then excess tissue was cleared over the top of the VCare cup using the dissecting forceps. The right salpingectomy and right side of the hysterectomy were then performed in a similar manner. The Ligasure Valleylab pen with the spatula attachment was then used to perform the colpotomy incising around the VCare cup. The uterus was removed and the fundus placed in the vaginal canal to maintain insufflation. Patient was noted to have a small 1 cm hematoma forming on the left vaginal cuff corner. This was coagulated with the LigaSure. The vaginal cuff was then reapproximated using 2-0 V lock suture in a running manner. All the pedicles and vaginal cuff were then closely visualized and hemostasis obtained with bipolar cautery using the LigaSure dissecting forceps or the Valleylab pen with the spatula. Excellent hemostasis noted. The the uterus was removed from the vaginal canal and sent to pathology. The Keating catheter was briefly removed. A diagnostic cystoscopy was performed using normal saline as the insufflation medium. Findings noted from above. Fluorescein IV was given intraoperatively to visualize the urine more easily. New Keating catheter was then replaced as the old one was contaminated. This is to be retained until removal on POD#1. Attention was then returned to the abdomen where hemostasis was verified. The CO2 pressure decreased to 8mmHG and hemostasis verified. The fascia in the LLQ incision was approximated with 0-Vicryl suture using the Joo Thomasjanusz fascial closure device. This was closed under direct visualization with the laparoscope. All trocars were removed under direct visualization. CO2 gas was allowed to escape the infraumbilical port prior to its removal. I did place subcutaneous stitch using 2-0 chromic on the 11mm port incision. All skin incisions were re-approximated using 4-0 Monocryl in a running subcuticular manner. Exophin skin adhesive gel and adhesive bandages placed. The patient tolerated this procedure well. Sponge, lap and instrument counts were correct x2 at the end of the procedure and the patient was taken to the recovery area in stable condition. The patient received 2gm IV ancef prior to the start of the procedure. Debrief performed and specimen reviewed.
[2024-03-18] MEDS: HYDROmorphone 0.5 mg/0.5 ml inj IVP (15:54)
[2024-03-18] MEDS: OXYCODONE 5 MG TABLET PO ×2 (18:53→22:31)
[2024-03-18] MEDS: ACETAMINOPHEN 325 MG TABLET 650 MG PO ×2 (18:53→22:31)
[2024-03-18] MEDS: SIMETHICONE 80 MG TAB.CHEW 160 MG PO (18:55)
[2024-03-18] MEDS: IBUPROFEN 600 MG TABLET PO (19:32)
--- NOTE | 2024-03-18 19:45 | PC.NURSE ---
The patient arrived to the floor this afternoon in stable condition. 2 Lap sites CDI with glue. The patient VSS on RA. The patient reported moderate pain.... IV and PO meds were given see MAR. Keating patent and draining bright orange urine. Ate jello and some crackers but declined dinner. Gas-x was given for gas pain as well. SCDs on bilateral feet. Call light within reach. Gabriella ESPAÑA BSN
[2024-03-18] MEDS: LORazepam 2 MG/ML inj IVP (21:05)
--- NOTE | 2024-03-18 22:06 | PC.NURSE ---
Pt was Saline locked by previous nurse prior to 1900. RN told to keep Keating in until AM shift.
[2024-03-19 01:32] VITALS: TEMP 37.2
[2024-03-19] MEDS: IBUPROFEN 600 MG TABLET PO ×2 (01:32→08:43)
[2024-03-19 01:36] VITALS: BP 130/80; PULSE 85; RESP 16; TEMP 37; O2SAT 96
--- NOTE | 2024-03-19 05:05 | PC.NURSE ---
Pt rested rested well this night. Pain controlled. No N/V. Lap sites CDI. Afebrile.
[2024-03-19 06:50] LABS: Basophils Absolute Auto 0.01 K/uL (0.00-0.30); Basophils Percent Auto 0.1 % (0.0-3.0); Eosinophils Absolute Auto 0.04 K/uL (0.00-0.50); Eosinophils Percent Auto 0.4 % (0.0-7.0); Hematocrit 36.1 % (33.0-51.0); Hemoglobin* 12.2 gm/dL (12.0-16.0); Immature Granulocytes Abs Auto 0.02 K/uL (0.00-0.30); Immature Granulocytes Pct Auto 0.2 %; Lymphocytes Absolute Auto 2.78 K/uL (0.90-2.90); Lymphocytes Percent Auto 29.8 % (20-44); Mean Corpuscular HGB Conc 34 gm/dL (32-36); Mean Corpuscular Hemoglobin 31 pg (26-34); Mean Corpuscular Volume 93 fL (80-100); Monocytes Percent Auto 10.2 % (0.0-11.0); Neutrophils Absolute Auto 5.52 K/uL (1.7-7.0); Neutrophils Percent Auto 59.3 % (42.0-72.0); Platelet Count* 152 K/uL (140-440); RDW Coefficient of Variation % 12.6 % (11.5-15.5); Red Blood Count 3.88 m/uL (4.00-5.20); White Blood Count* 9.32 K/uL (4.50-11.00)
[2024-03-19 06:53] LABS: Slide Review Reflex No
[2024-03-19 07:19] LABS: Creatinine* 0.5 mg/dL (0.5-1.5); Est. Creatinine Clearance* 143.36; Estimated Glomerular Filt Rate 130 ml/min
[2024-03-19 08:00] VITALS: BP 115/75; PULSE 80; RESP 18; TEMP 36.9; O2SAT 96
[2024-03-19] MEDS: SERTRALINE 100 MG TABLET 150 MG PO (08:43)
--- NOTE | 2024-03-19 09:10 | PM.GYNDS1 ---
DS: Providers Provider Time Seen by Provider: 09:10 Date Seen: 03/19/24 Primary care physician: Madhavi Alejandra PA-C Attending Physician on discharge: Jennifer Akhtar MD Date of Discharge: 03/19/24 DS: Diagnosis Discharge Diagnosis (1) PTSD (post-traumatic stress disorder): Status: Chronic (2) Vaginismus: Status: Acute (3) History of migraine: Status: Acute (4) Anxiety and depression: Status: Chronic (5) Obsessive-compulsive disorder: Status: Chronic (6) Dysmenorrhea: Status: Chronic (7) Vulvodynia: Status: Acute (8) Pelvic pain: Status: Chronic (9) Rheumatoid arthritis: Status: Chronic (10) S/P hysterectomy: Status: Acute Problem details: Total laparoscopic hysterectomy with bilateral salpingectomy on 03/18/2024 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 Indication for surgery: Menorrhagia, endometriosis, chronic pelvic pain. Intraoperative findings: On exam under anesthesia: Normal appearing external genitalia. Normal appearing cervix. The uterus was anteverted, approximately 6 week size, mobile. No masses palpable. Adnexa without mass or fullness palpable. On laparoscopy: Normal appearing uterus, bilateral fallopian tubes and ovaries. Right ovary with a physiologic cyst noted. Bilateral ureters noted to be functioning appropriately. Posterior cul-de-sac within normal limits. Normal appearing liver. Cystoscopy: The dome of the bladder was noted to be without defect and no evidence of any sutures from the vaginal cuff causing injury. Normal urine flow was noted through both ureteral orifices. She had an uncomplicated surgery. Postoperative course has been uneventful. Vitals have been stable. She has remained afebrile. Today, on postoperative day#1 , she reports the pain is well controlled. She has been able to ambulate Without difficulty. She is tolerating regular diet. She is passing flatus. Cartwright catheter will be removed and she will be able to be discharged once she's voiding without difficulty. 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 Clean, dry, and intact. 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 MACHINE OPERATOR - DS: Data Data Completed and Pending Labs on day of discharge: Labs from last 24 hours 03/19/24 03/18/24 03/18/24 06:15 09:44 09:30 WBC 9.32 4.59 RBC 3.88 L 4.21 Hgb 12.2 13.0 Hct 36.1 39.1 MCV 93 93 MCH 31 31 MCHC 34 33 RDW Coeff of Mimi 12.6 12.5 Plt Count 152 145 Neut % (Auto) 59.3 36.6 L Lymph % (Auto) 29.8 49.5 H Darke % (Auto) 10.2 9.6 Eos % (Auto) 0.4 3.9 Baso % (Auto) 0.1 0.4 Neut # (Auto) 5.52 1.70 Lymph # (Auto) 2.78 2.30 Darke # (Auto) 1.00 H 0.40 Eos # (Auto) 0.04 0.18 Baso # (Auto) 0.01 0.02 Abs Immat Gran (auto) 0.02 0.00 Imm/Tot Granulo (auto) 0.2 0.0 Creatinine 0.5 0.6 Estimated Creat Clear 143.36 119.47 Estimated GFR 130 125 Urine HCG, Qual Negative Blood Type A Negative Antibody Screen POSITIVE Antibody Identification Pending Procedures Procedures: Procedures Operation Date: 03/18/24 10:40 Actual Procedure Side Surgeon p M/S-Total Laparoscopic Hysterectomy, Bilateral Salpingectomy, Cystoscopy Bilateral Jennifer B MD Hermilo Complications: none Discharge Plan Discharge Disposition: Home w/ Parent or Adult Discharging Surgeon: Jennifer Akhtar Follow-Up Appointment: Dr. Akhtar, [facility], March 31 @ 1000 Prescriptions: New docusate sodium 100 mg Capsule 100 mg PO BID PRN (Reason: Constipation) 30 Days Qty: 60 0RF ibuprofen 600 mg Tablet 600 mg PO Q6H 30 Days Qty: 120 0RF oxycodone 5 mg Tablet 5 mg PO Q6H PRN (Reason: Moderate Pain) 14 Days Qty: 20 0RF simethicone 80 mg Tablet,Chewable 160 mg PO Q4H PRN (Reason: gas) 30 Days Qty: 90 0RF acetaminophen [Tylenol Extra Strength] 500 mg tablet 1,000 mg PO Q6H PRN30 Days Qty: 60 0RF Continued sertraline 100 mg tablet 150 mg PO DAILY Renflexis 100 mg recon soln IV hydroxychloroquine 200 mg tablet 200 mg PO BID alprazolam 0.5 mg tablet 0.5 mg PO BID PRN amitriptyline 10 mg tablet 10 mg PO HS Discontinued acetaminophen [Tylenol Extra Strength] 500 mg tablet 500 mg PO Q6H PRN ibuprofen 600 mg tablet 600 mg PO Q6H PRN Additional Instructions: LAPAROSCOPY POSTOPERATIVE INSTRUCTIONS ACTIVITY No heavy lifting/pushing/pulling for 4-6 weeks. Do not lift anything more than about 15 lbs (such as laundry, groceries, children, pets), vacuum, push heavy doors or grocery carts, etc. You may climb stairs as tolerated. Do not put anything in the vagina for 6-8 weeks after surgery unless otherwise instructed by your doctor (including tampons, douching, sexual intercourse, etc). No driving for about 2 weeks after surgery, while you are taking narcotic pain medication, or until you feel that you are ready. Practice checking your blind spot and stepping hard on the brake. Avoid sitting or lying in bed for more than 2 hours at a time while you are awake to reduce your risk of blood clots. You may return to work when directed by your physician. Please contact your doctor if you need any return to work letters or medical leave paperwork to be completed. WOUND CARE You will have 4 small incisions on your abdomen. There will be dissolvable stitches under your skin that do not need to be removed. Shower daily after surgery. Clean your incision with mild unscented antibacterial soap and water. Pat your incision dry with a clean towel. No tub baths until wound is completely healed. Wash your hands frequently, especially before touching your incision, changing any dressings, after using the restroom, and before eating. PAIN MANAGEMENT Take your oral pain medication as needed. You should be taking Ibuprofen 600mg every 6 hours with 1000 mg of Tylenol every 6 hours. You can take these together every six hours or alternate them every 3 hours. You should then take the oxycodone as needed if you have breakthrough pain on top of the Tylenol and Ibuprofen. Some pain medications can cause constipation so you should take a stool softener (i.e. colace/senna) while you are on these medications. You may also take milk of magnesia or Miralax for constipation. WHAT TO EXPECT AT HOME Recovery from surgery is generally 2-4 weeks, but sometimes longer for more strenuous activity. It is normal to be very tired during this time. It is normal to have some drainage or a small amount of vaginal bleeding after surgery which may last up to 6 weeks. You may go home with a cartwright catheter in your bladder. If so, you will need to follow up for a nurse visit in 7-10 days for removal. You will most likely experience gas pain, abdominal swelling, or shoulder pain for 24-72 hours after surgery. This is from the carbon dioxide gas put into your abdomen to better visualize your organs. A warm shower, heating pad, and/or walking may help. WHEN TO CALL YOUR DOCTOR : Fever (>100.4?F or 38.0?C) or chills. Incision problems such as redness, warmth, swelling, or foul-smelling drainage. Severe nausea or persistent vomiting. Bright red vaginal bleeding (soaking >1 pad/hour) or foul-smelling vaginal drainage. Severe pain not relieved with pain medication. Pain and swelling in your legs, especially if it is only on one side and not the other. Pain with urination, cloudy urine, or foul-smelling urine. Or if you have any other problems or questions. CALL 911 OR GO TO THE EMERGENCY ROOM IF YOU HAVE: Any shortness of breath, difficulty breathing, or chest pain. Follow-up: Madhavi Alejandra PA-C [Primary Care Provider] - Jennifer Akhtar MD [Staff Physician] - 03/31/24 10:00 am ([facility] for follow-up.) Discharge Orders: Discharge Order (Routine); Ordered 03/19/24 Ordered By: Jennifer Akhtar
[2024-03-19] MEDS: OXYCODONE 5 MG TABLET PO (09:55)
--- NOTE | 2024-03-19 13:02 | PC.NURSE ---
Discharge: Patient pleasant and cooperative, A&O. VSS, afebrile. Patient reports pain this shift managed with PRN medication, see MAR. Discharge instructions provided, all questions answered. IV removed with tip intact. Keating removed with tip intact. Discharged to home with via wheelchair at 1114.
== END 2024-03-19 11:14 | disposition home or self-care (01) ==
LOC: OR 09:08 → MEDSURG 09:10
PROVIDERS: PCP Physician Assistant Medical; Visit Provider Obstetrics & Gynecology
PROC: 0UT94ZZ Resection of Uterus, Percutaneous Endoscopic Approach (ICD-10-PCS; CPT 58571; principal; 2024-03-18 10:30)
DX: N92.0 Excessive and frequent menstruation with regular cycle (principal); N80.9 Endometriosis, unspecified; R10.2 Pelvic and perineal pain; N83.291 Other ovarian cyst, right side; G89.18 Other acute postprocedural pain; F43.10 Post-traumatic stress disorder, unspecified; N94.2 Vaginismus; F41.9 Anxiety disorder, unspecified; F32.A Depression, unspecified; F42.9 Obsessive-compulsive disorder, unspecified; N94.6 Dysmenorrhea, unspecified; M06.9 Rheumatoid arthritis, unspecified
CPT/HCPCS: 58571; 00840; 36415; 64488; 76942; 81025; 82565; 85025; 86850; 86870; 86880; 86900; 86901; 88307; A9270; C9290; J0665; J0690; J1100; J1170; J1630; J1885; J2060; J2175; J2250; J2405; J2704; J2710; J3010; J3475; J7120

== ENCOUNTER 2024-05-14 16:35 | Outpatient (CLI) | payer OTHER, SELFPAY ==
--- OUTSIDE RECORDS SUMMARY | 2024-05-14 16:37 | XMS_ITS | Clinical Summary ---
Author Organization [facility] Address [place], [place] [address] Care Team Providers Care Metal Filer Name Role Phone Pcp, No Unavailable Unavailable Madhavi Alejandra Primary Care Provider Allergies Active Allergy Reactions Criticality Noted Date Comments Amoxicillin Hives 11/30/2013 Penicillins Hives 11/30/2013 Medications Medication Sig Dispensed Refills Start Date End Date Status vit/iron fum/folic ac ( TABLET ORAL) Take 1 tablet by mouth once daily. Active Vxdqf-0-WWW-EPA-Fish Oil 1,000 mg (120 mg-180 mg) cap Take 1 capsule by mouth. 0 01/26/2020 Active infliximab-abda (RENFLEXIS IV) 10/15/2022 Active hydrOXYzine HCL (ATARAX) 10 mg tabletIndications:An xiety Take 1-2 Tablets (10-20 mg) by mouth two times daily. As needed for anxiety 60 Tablet 5 06/24/2023 Active hydroxychloroquine (PLAQUENIL) 200 mg tablet Take 2 Tablets (400 mg) by mouth once daily. 09/23/2023 Active ALPRAZolam (XANAX) 0.5 mg tabletIndications:Pa sharon disorder with agoraphobia Take 1 Tablet (0.5 mg) by mouth 2 times daily if needed for Anxiety. 15 Tablet 3 05/12/2024 Active sertraline (ZOLOFT) 100 mg tabletIndications:Pa sharon disorder with agoraphobia Take 2 Tablets (200 mg) by mouth once daily. 180 Tablet 1 05/06/2024 Active ALPRAZolam (XANAX) 0.5 mg tabletIndications:Pa sharon disorder with agoraphobia Take 1 Tablet (0.5 mg) by mouth 2 times daily if needed for Anxiety. must last 30 days 15 Tablet 5 11/25/2023 4 Discontinue d(Reorder (E-cancel not sent)) sertraline (ZOLOFT) 100 mg tabletIndications:Pa sharon disorder with agoraphobia Take 1.5 Tablets (150 mg) by mouth once daily. 135 Tablet 1 01/01/2024 4 Discontinue d(Reorder (E-cancel not sent)) HYDROcodone-acetamin ophen (5-325 mg/tablet) Take 1 Tablet by mouth once daily. 02/05/2024 4 Discontinue d(*Med complete/Re gimen complete/Le trace of care change) ondansetron (ZOFRAN ODT) [address] 4 mg on the tongue every 8 hours if needed for Nausea/Vomiti ng. 02/05/2024 4 Discontinue d(*Med complete/Re gimen complete/Le trace of care change) Active Problems Problem Noted Date Diagnosed Date Major depressive disorder, r ecurrent, severe without psychotic features 07/23/2022 Pap smear for cervical cancer screening 05/29/20 Overview (05/29/2022): 03/2022 NIL/HPV Negative Plan: Pap and HPV testing due in 5 years Controlled substance agreement signed 04/02/2022 Overview (04/02/2022): 04/02/22, Philly Jackson,DNP,TANK FARM OPERATOR,DISCHARGE PLANNER, Psychiatry Rheumatoid arthritis, seropositive 12/12/2021 Moderate episode of recurrent major depressive d isorder 12/08/2018 Panic disorder with agoraphobia 12/08/2018 Resolved Problems Problem Noted Date Diagnosed Date Resolved Date 01/27/2020 12/12/2021 Overview (07/20/2020): Component Latest Ref Rng & Units 07/12/2020 Vaginal/Rectal OB Strep B PCR Negative Estimated Date of Delivery: 08/09/20 Patient's last menstrual period was 11/03/2019 (exact date). Last Tdap- 05/19/2020 Last Flu vaccine- 04/19/2020 Glucose (GTT) result- Component Latest Ref Rng & Units 04/19/2020 HEMOGLOBIN 12.0 - 16.0 g/dL 12.9 MCV 80 - 100 fL 96 GLUCOSE,GESTATIONAL 65 - 139 mg/dL 99 TREPONEMA PALLIDUM Negative Negative 20 week US:FINDINGS: Sonographic imaging demonstrates a single living intrauterine gestation. Fetus demonstrates a regular cardiac rate of 144 beats per minute. Fetus has a vertex position. The placenta lies posteriorly without evidence of placenta previa. Amniotic fluid volume appears normal. Single deepest vertical pocket: 3.1 cm. The cervix is closed and measures 3.2 cm in length. The composite ultrasound gestational age is calculated at 16 weeks 5 days with an estimated sonographic due date of 08/10/2020. Allergies Allergen Reactions ? ? Amoxicillin Hives ? ? Pcn [Penicillins] Hives OB History Para Term AB Living 1 0 0 0 0 0 SAB TAB Ectopic Multiple Live Births 0 0 0 0 0 # Outcome Date GA Lbr Umer/2nd Weight Sex Delivery Anes PTL Lv 1 Current Create lab flowsheet for OB labs- Component Latest Ref Rng & Units 01/03/2020 01/03/2020 01/03/2020 9:10 AM 9:10 AM 9:10 AM ANTIBODY SCREEN Negative Negative SPECIMEN EXPIRATION DATE/TIME 01/06/20 23:59 HEMOGLOBIN 12.0 - 16.0 g/dL 14.7 MCV 80 - 100 fL 91 PLATELET COUNT 140 - 440 thou/cu mm 191 MPV 6.5 - 11.0 fL 12.1 (H) RUBELLA IGG ANTIBODY Positive 3.53 HEMOGLOBIN A1C SCREENING <=6.4 % 4.5 ABORH A Rh Negative HBSAG Nonreactive Nonreactive HEPATITIS C ANTIBODY Non-Reactive Non-Reactive HIV-1/HIV-2 ANTIBODY Non-Reactive Non-Reactive TREPONEMA PALLIDUM Negative Negative Past Medical History: . Date ? ? Abdominal pain ? ? Anxiety ? ? Depression ? ? Migraines ? ? No Significant Past Medical History ? ? OCD (obsessive compulsive disorder) ? ? Panic attacks ? ? Self-injurious behavior Past Surgical History: . Laterality Date ? ? ESOPHAGOGASTRODUODENOSCOPY N/A 01/2017 mild reflux ? ? EXPLORATORY LAPAROTOMY 2013 looking for endo, negative for endo, had twisted fallopian tubes No data on file. Problems (from 12/17/19 to present) No problems associated with this episode. Ana Dalal, RNC.....01/27/2020 9:26 AM Encounters Date Type Department Care Team Description 05/05/2024 3:00 PM CDT Telemedicine [facility] [address] [place] [address] Philly Jackson, BRENDA Medication Management; Telehealth 05/04/2024 Travel 04/22/2024 8:30 AM CDT Telemedicine [facility] [address] [place] [address] Angela Casarez, [facility] [place] [facility]; [facility] 04/22/2024 Travel 03/18/2024 Orders Only [facility] Scanner 1 scan: (1-Ord) [place], TOTAL LAPAROSCOPIC HYSTERECTOMY, 03/18/2024 03/18/2024 Lab Requisition [facility] [phone] Jennifer Akhtar MD 03/12/2024 12:45 PM CDT Preop Visit [facility] [address] [place] [address] Angelica Coffman MD Pre-Op Exam (pre op 03/18/[address] [facility] [address] Akhtar total hysterectomy) 03/11/2024 Travel 03/05/2024 Lab Requisition [facility] [phone] Jennifer Akhtar MD 02/20/2024 Orders Only [facility] Scanner 1 scan: (1-Ord) [facility], NON CONTRAST ABDOMEN PELVIS, 02/20/2024 02/20/2024 Telephone [facility] [address] [place] [address] Angelica Coffman MD Pain 02/13/2024 12:45 PM CDT Office Visit [facility] [address] [place] [address] Angelica Coffman MD Hospital F/U 02/12/2024 Travel from Last 3 Months Immunizations Name Administration Dates Next Due COVID-19 VACCINE SPIKEVAX (Kacy SLAUGHTER 50MCG/0.5ML) 12YO+ PFS 05/30/2023 COVID-19 vaccine (Moderna 50 mcg/0.5mL) 12YO+ BIVALENT PF, MDV 01/10/2023,05/17/2022 COVID-19 vaccine (Pfizer-Bio NTech 30mcg/0.3mL) PF, MDV 08/08/2021,12/25/2020,12/04/2020 DTaP 10/17/1999, 6,04/03/1995,01/31,1994 HIB PRP-OMP (PedvaxHIB) 01/01/1996,04/03,01/31/1995,11/21 Hepatitis B (Peds) 04/03/1995,1994, 995 Human Papilloma Virus Vaccine 08/24/2013, 013,02/12/2013 Human Papilloma Virus Vaccin e, Unspecified 09/03/2013,04/16/2013,02/12/2013 Inactivated Polio Vaccine 10/12/1999,,01/31/1995,11/21 Influenza Virus, Unspecified 05/18/2019 Influenza, IIV4 05/30/2023,,04/06/2021,04/19,03/27/2018,03/27/2017,05/09/2016 Influenza, IIV4 (=>6mos) MDV 05/18/2019 MMR 10/12/1999,12/22/1995 Meningococcal Vaccine (Menactra) 12/25/2012 Tdap 05/19/2020,03/14/2016,01/02/2007 Tdap, Unspecified 01/02/2007 Varicella Vaccine 01/02/2007,12/31/1999 Family History Medical History Relation Name Comments Migraines Brother Migraines Father Brain Aneurysm Maternal Grandfather Rheum arthritis Maternal Grandmother Good Health Mother Other Paternal Grandmother Lewy jean-claude dy dementia Other Sister Jaymie's Syndro me, around 30 minutes old Relation Name Status Comments Brother Father Maternal Grandfather Maternal Grandmother Mother Paternal Grandmother Sister Social History Tobacco Use Types Packs/Day Years Used Date Smoking Tobacco: Never Smokeless Tobacco: Never Tobacco Cessation:Counseling Given: Not Answered Alcohol Use Standard Drinks/Week Comments No 0 (1 standard drink = 0.6 oz pur e alcohol) PHQ-2 Answer Date Recorded PHQ-2 TOTAL SCORE 5 05/05/2024 Social Connections Answer Date Recorded Frequency of Communication with Friends and Fami ly 0 09/23/2023 Financial Resource Strain Answer Date R ecorded Difficulty of Paying Living Expenses 3 09/23/2023 Difficulty of Paying Living Expenses Not on file 09/23/2023 Food Insecurity Answer Date Recorded Do you worry your food will run out before you are able to buy more? 1 09/23/2023 Transportation Needs Answer Date Record ed Lack of Transportation (Medical) 1 09/23/2023 Housing Stability Answer Date Recorded What is your housing situation today? 1 09/23/2023 Sex and Gender Information Value Date Recorded Sex Assigned at Not on file Gender Identity Not on file Sexual Orientation Not on file Obstetrics History Para Term AB IAB SAB Ectopic Multiple Livin g Live Births 1 1 1 1 1 Date Outcome GA Total Labor Labor/2nd/3rd Weight Sex Type Anes PTL Katya A1 A5 Name Clin 022 Term 41w 0d 4.43 kg (9 lb 12.4 oz) M CS-LT ranv Spina l,Epi dural Livin g Melissa Park MD Complications:Intraamniotic Infection,Anesthetic Complications, hemorrhage Delivery Location:Hospital ( [facility]) Last Filed Vital Signs Vital Sign Reading Time Taken Comments Blood Pressure 101/69 03/12/2024 10:51 AM CDT Pulse 72 03/12/2024 10:51 AM CDT Temperature 36.8 ??C (98.2 ??F) 10/02/2023 1:32 PM CD T Respiratory Rate 20 12/30/2018 12:10 PM CDT Oxygen Saturation 97% 03/12/2024 10:51 AM CDT Inhaled Oxygen Concentration - - Weight 71.7 kg (158 lb) 03/12/2024 10:51 AM CDT Height 164.5 cm (5' 4.75) 03/12/2024 10:51 AM C DT Body Mass Index 26.5 03/12/2024 10:51 AM CDT Plan of Treatment Upcoming Encounters Date Type Department Care Team (Late st Contact Info) Description 06/16/2024 11:00 AM EDUCATION COORDINATOR Telemedicine [facility] [address] [place] [address] Philly Jackson NP [address] [place] [address] Health Maintenance Due Date Last Done Comments Influenza for age 9-49 03/21/2024 , 05/17/2022, 04/06/2021, Additional history exists COVID-19 vaccine series ( season) 2024 04/30/2024, 05/30/2023, 01/10/2023, Additional history exists BMI (ht and wt on same day) for age 18+ 03/12/2025 03/12/2024, 05/05/2023, 11/19/2022, Additional history exists Depression screening for age 12+ 05/05/2025 05/05/2024, 11/25/2023, 06/24/2023, Additional history exists Pap test for age 21-65 04/16/2027 , 04/16/2022, 09/16/2018, Additional history exists Tetanus booster 05/19/2030 05/19/2020, 02/19, 01/02/2007, Additional history exists HIV for age 15-65 Completed 01/03/2020, 09/16/2018 Hepatitis C screening for age 18-79 Completed 01/03/2020, 09/16/2018 Tdap Completed 05/19/2020, 02/19, 01/02/2007, Additional history exists Pneumococcal series for age 6-64 Aged Out No longer eligible based on patient's age to complete this topic Procedures Procedure Name Priority Date/Time Associated Diagnosis Comments LAB TRACKING EVENT Routine 03/18/2024 1: 15 PM CDT PATH TISSUE EXAM Routine 03/18/2024 1:15 PM CDT SCAN-OPERATIVE/PROCEDU RE REPORT 03/18/2024 12:00 AM CDT HEMOGLOBIN Routine 03/12/2024 11:51 AM CDT Preoperative cardiovascular examination LAB TRACKING EVENT Routine 03/04/2024 11 :40 AM CDT PATH TISSUE EXAM Routine 03/04/2024 11:4 0 AM CDT SCAN-CT INTERPRETATION 12:00 AM CDT HPV HIGH RISK Routine 04/16/2022 11:35 AM CDT Screening for cervical cancer ANTI HIV 1/2 Routine 01/03/2020 9:10 AM CDT Encounter for supervision of normal first in first trimester ANTI HCV Routine 01/03/2020 9:10 AM CDT Encounter for supervision of normal first in first trimester from Last 3 Months or Most Recently Relevant to Health Maintenance Results * LAB TRACKING EVENT (03/18/2024 1:15 PM CDT) Only the most recent of2 resultswithin the time period is included. Other (Other) Client Collect / Unknown 03/18/2024 1:15 PM CDT 03/18/2024 10:10 PM CDT Jennifer Akhtar MD LAB BILL ONLY [facility] [address] [place] [address], * PATH TISSUE EXAM (03/18/2024 1:15 PM CDT) Only the most recent of2 resultswithin the time period is included. Case Report Pathology Report ?Case: [id number] ? Authorizing Provider: ??Hermilo, Jennifer Barajas MD ?Collected: ? 03/18/2024 1315 ? Ordering Location: ? [facility] ?Received: ?03/19/2024 0739 ? Pathologist: ? Giorgi Granados MD ? Specimen: ?Uterus,cervix,b ilateral fallopian tubes (no ovaries) ? 03/24/2024 10:47 AM [facility] [facility]ORAT[facility]-C ENTRAL LABORATORY Final Diagnosis A) UTERUS WITH CERVIX AND FALLOPIAN TUBES, TOTAL HYSTERECTOMY WITH BILATERAL SALPINGECTOMY: 1. Cervix: No significant histologic abnormality 2. Endometrium: Endometrial polyp with background secretory endometrium 3. Myometrium: No significant histologic abnormality 4. Uterine serosa: No significant histologic abnormality 5. Fallopian tubes: Benign paratubal cysts 6. Uterine weight: 61 grams 7. Negative for malignancy 03/24/2024 10:47 AM [facility]-C ENTRAL LABORATORY Clinical Information Abnormal uterine bleeding, pelvic pain 03/24/2024 10:47 AM [facility] Gross Description A) Received in formalin, labeled with the patient's name and uterus, cervix, right and left fallopian tubes, is a total hysterectomy and bilateral salpingectomy specimen consisting of the uterus and attached cervix (7.5 cm fundus to cervix, 3.5 cm cornu cornu, 3.2 cm anterior to posterior, and 60.6 g) and detached unoriented bilateral fallopian tubes (fallopian tube #1: 6.7 cm long and 0.3 to 0.5 cm in diameter; fallopian tube #2: 5.7 cm long and 0.3 to 0.5 cm in diameter). The uterine serosal surface is pink-hudson focally hyperemic smooth and unremarkable. ??The attached cervix (2.7 x 2.4 cm is pink-hudson focally hyperemic smooth and unremarkable with a 1.3 x 0.1 cm slitlike os. ??The endocervical canal (3.3 cm long) is pink-hudson with an unremarkable herringbone folding pattern, a distinct squamocolumnar junction, and a 0.8 x 0.5 cm hemorrhagic defect at the anterior lower uterine segment/upper endocervical canal resembling a previous section scar (consistent with the patient history). ??The triangular endometrial lining (3.9 x 2.0 cm and 0.2 to 0.3 cm thick) is lush pink-hudson focally hyperemic unremarkable with no distinct polyps or mass lesions. Serially sectioning the uterine corpus reveals pink-hudson focally hyperemic minimally trabeculated myometrium (1.2 to 1.5 cm thick) with no discrete myometrial nodules or other distinct abnormalities. Fallopian tube #2 is received in 2 fragments. ??The fallopian tubes are each fimbriated and characterized by a pink-hudson and red hyperemic smooth unremarkable serosal surface. ??Sectioning reveals pink-hudson focally hyperemic membranous powell and a central uniform pink-hudson pinpoint to stellate lumen with no apparent luminal hemorrhage or masses. Facility Maintenance Technician sections are submitted as follows: 1. ??Anterior cervix 2. ??Posterior cervix 3. ??Anterior upper endocervical canal/lower uterine segment with hemorrhagic defect 4. ??Anterior uterine wall, full-thickness 5. ??Posterior uterine wall, full-thickness 6. ??Fallopian tube #1 fimbria, entirely; patient portal representative fallopian tube cross-sections 7. ??Fallopian tube #2 fimbria, entirely; patient portal representative fallopian tube cross-sections ADW 03/19/2024 03/24/2024 10:47 AM [facility] [employer] [facility] ENTRAL LABORATORY Microscopic Description The final diagnosis is based on microscopic examination of appropriate sections of all specimens. 03/24/2024 10:47 AM [facility] ENTRAL LABORATORY Additional Information Interpreted at [facility], Central Laboratory - [address] [address] 03/24/2024 10:47 AM [facility] [employer] [facility]-C ENTRPR LABORATORY Other (Uterus,cervix,bi lateral fallopian tubes (no ovaries)) 03/18/2024 1:15 PM CDT 03/19/2024 7:39 AM CDT Jennifer Akhtar MD PATHOLOGY/CYTOLOGY [facility] [address] [place] [address], [place] * SCAN-OPERATIVE/PROCEDURE REPORT (03/18/2024 12:00 AM CDT) Scanner OTHER * HEMOGLOBIN (03/12/2024 11:51 AM CDT) HEMOGLOBIN 13.4 12.0 - 16.0 g/dL 03/12/2024 11:58 AM CDT [facility] MCV 92 80 - 100 fL 03/12/2024 11:58 AM CDT [facility] Blood BLOOD SPECIMEN / Unknown Venipuncture / Unknown 03/12/2024 11:51 AM CDT 03/12/2024 11:51 AM CDT Angelica Coffman MD HEMATOLOGY Performing Organization Address City/[facility]/ZIP Co de Phone Number [facility] [address] [place] [address], [place] [phone] * SCAN-CT INTERPRETATION (02/20/2024 12:00 AM CDT) Anatomical Region Laterality Modality Other Scanner OTHER * HPV HIGH RISK (04/16/2022 11:35 AM CDT) TYPE 16 Negative Negative 04/20/2022 6:59 AM CDT [facility] LABORATORY TYPE 18 Negative Negative 04/20/2022 6:59 AM CDT [facility] TR[facility] OTHER HIGH RISK TYPES Negative Negative 04/20/2022 6:59 AM CDT [facility] Other (Cervical) Non-Blood / Unknown 04/16/2022 11:35 AM CDT 04/17/2022 10:56 AM CDT Narrative [facility] - 04/20/2022 6:59 AM CDT HPV types 16, 18, 31, 33, 35, 39, 45, 51, 52, 56, 58, 59, 66 and 68 DNA were undetectable or below the pre-set threshold. Methodology: [place] 4800 HPV Test Madhavi PENA MICROBIOLOGY [facility] [address] [place] [address], * ANTI HCV (01/03/2020 9:10 AM CDT) HEPATITIS C ANTIBODY Non-React jett Non-React jett 01/03/2020 2:04 PM CDT [facility] Comment:Antibodies to HCV no t detected; does not exclude the possibility of exposure to HCV. Blood BLOOD SPECIMEN / Unknown Venipuncture / Unknown 01/03/2020 9:10 AM CDT 01/03/2020 9:10 AM CDT Madhavi PENA SEND OUTS Performing Organization Address [facility] Co de Phone Number [facility] [address] [place] [address], * ANTI HIV 1/2 (01/03/2020 9:10 AM CDT) Pathologist [facility] HIV-1/HIV-2 ANTIBODY Non-Reacti ve Non-Reacti ve 01/03/2020 2:00 PM CDT [facility] Comment:HIV-1 p24 and HIV-1/ HIV-2 Ab not detected. Blood BLOOD SPECIMEN / Unknown Venipuncture / Unknown 01/03/2020 9:10 AM CDT 01/03/2020 9:10 AM CDT Madhavi PENA SEND OUTS [facility] [address] [place] [phone], from Last 3 Months or Most Recently Relevant to Health Maintenance Advance Directives Documents on File Type Date Recorded Patient Facility Maintenance Technician Expl anation Treatment Guidelines 07/05/2020 * Full Code (Latest Code Status on File) Date Activated Date Inactivated Comments 12/07/2018 10:07 PM 12/09/2018 3:08 PM Care Teams Metal Filer Relationship Specialty Start Date End Date Madhavi Alejandra PA [address] [place] [address] PCP - General Physician Pipe Insulator Helper 08/26/17 Pcp, No . 07/01/14
== END 2024-05-14 16:36 | disposition home or self-care (01) ==
LOC: NFLDREF 16:35
PROVIDERS: PCP Physician Assistant Medical; Visit Provider Obstetrics & Gynecology
DX: L03.90 Cellulitis, unspecified (principal)
CPT/HCPCS: 87070